=== PATIENT | female | born 2005 | race Caucasian/White ===

== ENCOUNTER 2023-09-14 10:19 | Emergency (ER) | payer BC, SELFPAY ==
[2023-09-14 10:38] VITALS: BP 125/79; PULSE 76; RESP 18; TEMP 37.7; O2SAT 97
--- NOTE | 2023-09-14 11:39 | ED_ITS ---
HPI - General Adult General Chief complaint: Shortness of Breath/Dyspnea Stated complaint: covid +, difficulty breathing Time Seen by Provider: 09/14/23 11:09 History of Present Illness HPI narrative: This 18-year-old female comes in with upper respiratory symptoms that began 2 days ago. She tested at home for COVID and this returned with a positive result. She comes in today stating that she feels like her chest is tight. She arrives with normal vital signs. She thinks that she might have had a fever but did not measure her temperature. Her temperature here today is 99.8? F. Oximetry on arrival is at 97% on room air with normal respiratory rate and pulse rate. Related Data Home Medications Medication Instructions Recorded Confirmed clonidine HCl 0.1 mg tablet 0.1 mg PO DAILY 07/22/23 07/22/23 dextroamphetamine-amphetamine 20 1 tab PO DAILY 07/22/23 07/22/23 mg tablet dextroamphetamine-amphetamine ER 1 cap PO QAM 07/22/23 07/22/23 20 mg 24hr capsule,extend release duloxetine 60 mg capsule,delayed 60 mg PO DAILY 07/22/23 07/22/23 release hydroxyzine HCl 10 mg tablet 10 mg PO TID PRN 07/22/23 07/22/23 valacyclovir 1 gram tablet 4,000 mg PO ONCE 07/22/23 07/22/23 Previous Rx's Medication Instructions Recorded albuterol sulfate 90 mcg/actuation 2 inh inhalation Q4-6H PRN #1 ea 09/14/23 breath activated powder inhaler Allergies Allergy/AdvReac Type Severity Reaction Status Date / Time No Known Drug Allergies Allergy Verified 07/22/23 10:31 Review of Systems Status of ROS: Reports: 10 or more systems reviewed and unremarkable except as noted in History and below Narrative: Constitutional: No fevers, no weight gain or loss. Eyes: No discharge. No vision changes. HENT: No congestion, no sore throat, no ear pain. Cardiovascular: No chest pain, no palpitations. Respiratory: No shortness of breath, no wheezes. Productive cough. Gastrointestinal: No abdominal pain, no vomiting, no diarrhea. Genitourinary: No dysuria, no hematuria. Musculoskeletal: Normal range of motion. Skin: No rashes, no pruritis. Neurological: No dizziness, weakness, sensory change, speech change. Endo/Heme/Allergies: No bruising or bleeding. No polydipsia. Pysch: no suicidality, no anxiety, no insomnia. All other systems reviewed and are negative. Exam Narrative: Exam Narrative: Constitutional: Well-developed, well-nourished, no acute distress. HEENT: Normocephalic, atraumatic. Neck: Normal range of motion. Nontender. Supple. Heart: Regular. No murmurs. Normal rate. Intact distal pulses. Lungs: Clear to auscultation. No wheezes, rhonchi, or rales. Abdomen: Normal bowel sounds. Nontender. No rebound tenderness. Genitalia: Deferred. Back: No midline tenderness. Normal range of motion. Extremities: Normal range of motion. No injury. Skin: Intact. No rash. Warm. No erythema or pallor. Neurologic: No altered sensation. No weakness. Alert and oriented. Psychiatric: No suicidality. No anxiety or depression. No insomnia. Nursing notes and vitals signs are reviewed. Const: Vital Signs, click to edit/add: Vital Signs - 24 hr 09/14/23 10:38 Temperature 99.8 F H Pulse Rate [Pulse Oximeter] 76 Respiratory Rate 18 Blood Pressure [Ri t Upper Arm] 125/79 Pulse Oximetry 97 Oxygen Delivery Me thod Room Air Course Vital Signs Vital signs: Initial Vital Signs Temperature 99.8 F H 09/14/23 10:38 Temperature Source Temporal Artery Scan 09/14/23 10:38 Pulse Rate 76 09/14/23 10:38 Respiratory Rate 18 09/14/23 10:38 Blood Pressure 125/79 09/14/23 10:38 Blood Pressure Mean 94 09/14/23 10:38 Blood Pressure Position Sitting 09/14/23 10:38 Pulse Oximetry 97 09/14/23 10:38 Oxygen Delivery Method Room Air 09/14/23 10:38 Vital Signs Temperature 99.8 F H 09/14/23 10:38 Pulse Rate 76 09/14/23 10:38 Respiratory Rate 18 09/14/23 10:38 Blood Pressure 125/79 09/14/23 10:38 Pulse Oximetry 97 09/14/23 10:38 Oxygen Delivery Method Room Air 09/14/23 10:38 Temperature 99.8 F H 09/14/23 10:38 Pulse Rate 76 09/14/23 10:38 Respiratory Rate 18 09/14/23 10:38 Blood Pressure 125/79 09/14/23 10:38 Pulse Oximetry 97 09/14/23 10:38 Oxygen Delivery Method Room Air 09/14/23 10:38 Medical Decision Making MDM Narrative Medical decision making narrative: This patient arrives with upper respiratory infection symptoms and tested positive at home for COVID. She arrives with normal vital signs but states that she feels some tightness when taking a breath. On exam her lung sounds are normal bilaterally. The patient did receive an oral dose of dexamethasone 10 mg. She stated that she has used an inhaler in the past at times like these but does not regularly use an inhaler. I did provide prescription for albuterol. Discharge Plan Discharge Clinical Impression: COVID-19 Patient Disposition: Home, Self-Care Prescriptions: New albuterol sulfate 90 mcg/actuation aerosol powdr breath activated 2 inh inhalation Q4-6H PRNQty: 1 0RF No Action duloxetine 60 mg capsule,delayed release(DR/EC) 60 mg PO DAILY dextroamphetamine-amphetamine 20 mg capsule,extended release 24hr 1 cap PO QAM dextroamphetamine-amphetamine 20 mg tablet 1 tab PO DAILY valacyclovir 1 gram tablet 4,000 mg PO ONCE clonidine HCl 0.1 mg tablet 0.1 mg PO DAILY hydroxyzine HCl 10 mg tablet 10 mg PO TID PRN Follow Up/Referrals: Irma Mcleod MD [Primary Care Provider] - Stand Alone Forms: [employer] Info Instructions
[2023-09-14] MEDS: dexAMETHasone 10 MG/ML inj PO (11:47)
[2023-09-14 11:53] VITALS: PULSE 66; O2SAT 96
== END 2023-09-14 12:20 | disposition home or self-care (01) ==
LOC: ED 11:55
PROVIDERS: Emergency Provider Emergency Medicine Emergency Medical Services; PCP Pediatrics
DX: U07.1 COVID-19 (principal)
CPT/HCPCS: 99283; 99284; J1100

== ENCOUNTER 2023-09-28 08:32 | Emergency (ER) | payer OTHER, SELFPAY ==
[2023-09-28 08:41] VITALS: BP 117/75; PULSE 72; RESP 18; TEMP 37.1; O2SAT 98; BMI 26.6
--- NOTE | 2023-09-28 09:02 | ED.HEATRA ---
HPI - Head Injury General Time Seen by Provider: 09:02 Date Seen: 09/28/23 Chief complaint: Head Injury/Pain Stated complaint: Concussion Time Seen by Provider: 09/28/23 08:53 Source: patient and RN notes reviewed Mode of arrival: ambulatory Limitations: no limitations History of Present Illness HPI Narrative: This 18-year-old female is ambulatory into the ED for concern of concussion. She hit her head at work 4 days ago, no loss of consciousness. Now she states it hurts to touch the area where she hit her head, has a light headache, does describe some blurry vision when looking at her telephone only. 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 She has had 2 prior concussions, was in the care of a specialist for 1 of them. Her symptoms have been a little different, she feels she hit different areas of her head with each of these. Light is really bothering her, feels nauseated with light. She will feel a little woozy with walking but is still able to walk. MD Complaint: head injury and head pain Related Data Home Medications Medication Instructions Recorded Confirmed clonidine HCl 0.1 mg tablet 0.1 mg PO DAILY 07/22/23 09/28/23 dextroamphetamine-amphetamine 20 1 tab PO DAILY 07/22/23 09/28/23 mg tablet dextroamphetamine-amphetamine ER 1 cap PO QAM 07/22/23 09/28/23 20 mg 24hr capsule,extend release hydroxyzine HCl 10 mg tablet 10 mg PO TID PRN 07/22/23 09/28/23 valacyclovir 1 gram tablet 4,000 mg PO ONCE 07/22/23 09/28/23 duloxetine 30 mg capsule,delayed 30 mg PO DAILY 09/28/23 09/28/23 release Previous Rx's Medication Instructions Recorded albuterol sulfate 90 mcg/actuation 2 inh inhalation Q4-6H PRN #1 ea 09/14/23 breath activated powder inhaler ondansetron HCl 4 mg tablet 4 mg PO Q8H PRN nausea and 09/28/23 vomiting #10 tabs Allergies Allergy/AdvReac Type Severity Reaction Status Date / Time No Known Drug Allergies Allergy Verified 07/22/23 10:31 Review of Systems Status of ROS: Reports: 6 or more systems reviewed and unremarkable except as noted in History and below PFSH PFSH Social History Do you use any of these nicotine containing products: Vaping Products How often do you have a drink containing alcohol: 2-4 times a month How often do you have six or more drinks on one occasion: Monthly AUDIT-C Alcohol total score: 4 Non-prescribed substance use: denies use Exam Const: Vital Signs, click to edit/add: Vital Signs - 24 hr 09/28/23 08:41 Temperature 98.8 F Pulse Rate [Right Pulse Oximeter] 72 Respiratory Rate 18 Blood Pressure [Ri ght Upper Arm] 117/75 Pulse Oximetry 98 Oxygen Delivery Me thod Room Air This 18-year-old female has lights off in exam room for, she does allow me to turn them on. She is very pleasant, alert, interactive, no apparent distress. Her stocking cap was removed, no visible area of trauma noted to the scalp, no palpable area of trauma noted. Pupils equal round reactive to light, extraocular muscles intact, no nystagmus, no noted double vision. Sclera clear. Symmetrical facial function, tongue protrudes midline, no oral traumatic changes noted. TMs and canals are normal, no traumatic change. Neck is supple, full range of motion. Lungs clear, CV regular rate rhythm no murmur. Neuro is grossly intact, gait normal ambulating in. Documenting provider has reviewed patient's vital signs: yes Course Course ED Course: Have reviewed [facility] head injury rules, risk of radiation outweighs benefit of any CT imaging. Her injury was 4 days ago. She does have symptoms at support concussion. We reviewed that I can make no projections as to how long she will have symptoms. I recommend rest, avoidance of screen time including television and phone if it increases her symptoms. We did discuss use the Tylenol and ibuprofen, will send a prescription for Zofran in if she is having nausea. She will need to follow-up early next week in clinic, note provided to be off work in the interim so she may rest. Vital Signs Vital signs: Initial Vital Signs Temperature 98.8 F 09/28/23 08:41 Temperature Source Temporal Artery Scan 09/28/23 08:41 Pulse Rate 72 09/28/23 08:41 Respiratory Rate 18 09/28/23 08:41 Blood Pressure 117/75 09/28/23 08:41 Blood Pressure Mean 89 09/28/23 08:41 Blood Pressure Position Sitting 09/28/23 08:41 Pulse Oximetry 98 09/28/23 08:41 Oxygen Delivery Method Room Air 09/28/23 08:41 Vital Signs Temperature 98.8 F 09/28/23 08:41 Pulse Rate 72 09/28/23 08:41 Respiratory Rate 18 09/28/23 08:41 Blood Pressure 117/75 09/28/23 08:41 Pulse Oximetry 98 09/28/23 08:41 Oxygen Delivery Method Room Air 09/28/23 08:41 Temperature 98.8 F 09/28/23 08:41 Pulse Rate 72 09/28/23 08:41 Respiratory Rate 18 09/28/23 08:41 Blood Pressure 117/75 09/28/23 08:41 Pulse Oximetry 98 09/28/23 08:41 Oxygen Delivery Method Room Air 09/28/23 08:41 Discharge Plan Discharge Clinical Impression: Concussion without loss of consciousness Patient Disposition: Home, Self-Care Condition: Stable Instructions: Concussion (ED) Additional Instructions: Need to rest, avoid exercise, screen time if they are increasing her symptoms. Recommend follow up in clinic with your primary care provider on Saturday or Saturday, consider referral to a concussion specialty clinic if you are having ongoing symptoms. May use Tylenol and ibuprofen per bottle directions as needed for any headache. Prescription for Zofran sent to be used if you are having nausea. Follow concussion patient Education handout given as well. Activity Level: Activity as Tolerated Discharge Diet: Regular Prescriptions: New ondansetron HCl 4 mg tablet 4 mg PO Q8H PRN (Reason: nausea and vomiting) Qty: 10 0RF No Action dextroamphetamine-amphetamine 20 mg capsule,extended release 24hr 1 cap PO QAM dextroamphetamine-amphetamine 20 mg tablet 1 tab PO DAILY valacyclovir 1 gram tablet 4,000 mg PO ONCE clonidine HCl 0.1 mg tablet 0.1 mg PO DAILY hydroxyzine HCl 10 mg tablet 10 mg PO TID PRN albuterol sulfate 90 mcg/actuation aerosol powdr breath activated 2 inh inhalation Q4-6H PRNQty: 1 0RF duloxetine 30 mg capsule,delayed release(DR/EC) 30 mg PO DAILY Follow Up/Referrals: Irma Mcleod MD [Primary Care Provider] - Stand Alone Forms: [employer] Info Instructions
== END 2023-09-28 09:34 | disposition home or self-care (01) ==
PROVIDERS: Emergency Provider Family Medicine; PCP Pediatrics
DX: S06.0X0A Concussion without loss of consciousness, initial encounter (principal); W22.8XXA Striking against or struck by other objects, initial encounter
CPT/HCPCS: 99282; 99283

== ENCOUNTER 2023-11-22 11:00 | Outpatient (RCR) | payer OTHER, SELFPAY | END 2024-01-03 14:56 | disposition home or self-care (01) | PROVIDERS: PCP Pediatrics; Visit Provider Pediatrics | DX: S06.0X0A Concussion without loss of consciousness, initial encounter (principal); S16.1XXA Strain of muscle, fascia and tendon at neck level, initial encounter; G44.86 Cervicogenic headache; Z51.89 Encounter for other specified aftercare | CPT/HCPCS: 97110; 97140; 97162 ==

== ENCOUNTER 2024-06-17 19:01 | Outpatient (CLI) | payer BC, SELFPAY ==
[2024-06-17 23:42] LABS: Chlamydia DNA Amplified* NOT DETECTED (No Detected); GC DNA Amplified* NOT DETECTED (No Detected)
== END 2024-06-17 19:02 | disposition home or self-care (01) ==
PROVIDERS: PCP Pediatrics; Visit Provider Nurse Practitioner
DX: N89.8 Other specified noninflammatory disorders of vagina (principal); R30.0 Dysuria
CPT/HCPCS: 87491; 87591

== ENCOUNTER 2024-07-21 00:08 | Emergency (ER) | payer BC, SELFPAY ==
[2024-07-21 00:17] VITALS: BP 125/113; PULSE 111; RESP 18; TEMP 36.4; O2SAT 95; BMI 31.8
[2024-07-21] MEDS: IPRAT-ALBUT 0.5-2.5 MG/3 ML NEB 1 NEB IH (00:44)
--- NOTE | 2024-07-21 00:59 | ED_ITS ---
HPI - General Adult General Chief complaint: Shortness of Breath/Dyspnea Stated complaint: trouble breathing/wheezing Time Seen by Provider: 07/21/24 00:11 Source: patient Mode of arrival: ambulatory History of Present Illness HPI narrative: 19-year-old female presents the emergency department with a 3 week history of cough and wheezing. Symptoms have not changed in any way, but are persistent. There is no severe shortness of breath, no productive cough. She has not been evaluated in urgent care or clinic for these symptoms. No measurable fever. No history of blood clots. Does not take any anticoagulants. Has not tried any in halers or other typical [id number] treatments. Reports a remote history of exercise-induced asthma but does not have access to an inhaler. Does have a primary care provider. No known sick exposures, no pertinent travel history. No cardiac symptoms. Reports congestion in the chest. Past medical history notable for depression, exercise-induced asthma. Long-term medications are Adderall, duloxetine, Zofran and Vistaril. She has Nexplanon for contraception. ROS notable for the respiratory and HEENT symptoms as above. Related Data Home Medications ?Medication ?Instructions ?Recorded ?Confirmed clonidine HCl 0.1 mg tablet 0.1 mg PO DAILY 07/22/23 07/06/24 dextroamphetamine-amphetamine 20 1 tab PO DAILY 07/22/23 07/06/24 mg tablet dextroamphetamine-amphetamine ER 1 cap PO QAM 07/22/23 07/06/24 20 mg 24hr capsule,extend release hydroxyzine HCl 10 mg tablet 10 mg PO TID PRN 07/22/23 07/06/24 valacyclovir 1 gram tablet 4,000 mg PO ONCE 07/22/23 07/06/24 duloxetine 30 mg capsule,delayed 30 mg PO DAILY 09/28/23 07/06/24 release Previous Rx's ?Medication ?Instructions ?Recorded albuterol sulfate 90 mcg/actuation 2 inh inhalation Q4-6H PRN #1 ea 09/14/23 breath activated powder inhaler ondansetron HCl 4 mg tablet 4 mg PO Q8H PRN nausea and 09/28/23 vomiting #10 tabs albuterol sulfate 90 mcg/actuation 1 inh inhalation Q4-6H PRN #1 ea 07/21/24 breath activated powder inhaler azithromycin 250 mg tablet See Rx Instructions PO .COMPLEX #6 07/21/24 tabs cefdinir 300 mg capsule 300 mg PO BID 7 days #14 caps 07/21/24 inhalational spacing device #1 ea 07/21/24 (BreatheRite Valved MDI Spacer) prednisone 20 mg tablet 20 mg PO DAILY #3 tabs 07/21/24 Allergies Allergy/AdvReac Type Severity Reaction Status Date / Time No Known Drug Allergies Allergy Verified 07/06/24 18:34 PFSH PFS Social History Do you use any of these nicotine containing products: Vaping Products How often do you have a drink containing alcohol: 2-4 times a month How often do you have six or more drinks on one occasion: Monthly AUDIT-C Alcohol total score: 4 Non-prescribed substance use: denies use Exam Const: Vital Signs, click to edit/add: Vital Signs - 24 hr 07/21/24 00:17 Temperature 97.6 F Pulse Rate [Pulse Oximeter] 111 H Respiratory Rate 18 Blood Pressure [Ri ght Upper Arm] 125/113 H Pulse Oximetry 95 Oxygen Delivery Me thod Room Air Documenting provider has reviewed patient's vital signs: yes Common normals: no apparent distress General appearance: comfortable HENMT: Common normals: normocephalic Head and scalp: normocephalic Face and sinus: normal facial exam Mouth: oral and palatal mucosa normal Throat: posterior oropharynx normal Eye: Common normals: conjunctivae normal General eye: normal appearance of both eyes Conjunctiva: conjunctiva(e) normal Neck & C-Spine: Common normals: full ROM and no lymphadenopathy Resp: Common normals: normal respiratory effort Other: Moderate expiratory wheeze and mild prolongation of expiration. Very faint by basilar bilateral crackles. No increased respiratory effort. Cardio: Common normals: regular rate, regular rhythm, S1 normal heart sound, S2 normal heart sound and no murmurs Rate: regular rate Rhythm: regular rhythm Heart sounds: S1 normal and S2 normal Extremity: Common normals: normal to inspection and no pedal edema Psych: Appearance: grossly normal Attitude: calm Insight: fair Judgement: fair Skin: Common normals: no rashes or lesions noted General skin exam: no rashes or lesions noted Course Course ED Course: 19-year-old female with 3 weeks of cough, no fever. Exam suspicious for atypical pneumonia. Age demographic does fit. No hypoxia or tachypnea. Counseled patient that additional testing such as blood work, chest x-ray, etc. is unlikely to climate change analyst. Recommended prednisone. Due to her psychiatric history, would recommend that she take the medication in the mornings. Dosing discussed. We have had quite a bit of local resistance for young people with pneumonias and treatment on doxycycline. Because of this, I do recommend cephalosporin plus azithromycin instead. She was understanding of this. Single dose of cefuroxime and azithromycin here in the ED. Seven days of Ceftin plus additional 5 days of azithromycin sent to pharmacy. Three days of prednisone. Will give DuoNeb x1 prior to ED departure and prescribed albuterol with spacer. Use discussed. Off of work for 48 hours, then may return without restrictions. Alarm symptoms route that would warrant ED presentation. If she is not improving at least 2[address] the time she is finished with antibiotics, repeat clinic evaluation. Counseled on typical nature of reactive airway disease to last several weeks even after antibiotic treatment. She verbalizes understanding and agreement, written instructions provided. Vital Signs Vital signs: Initial Vital Signs Temperature 97.6 F 07/21/24 00:17 Temperature Source Temporal Artery Scan 07/21/24 00:17 Pulse Rate 111 H 07/21/24 00:17 Respiratory Rate 18 07/21/24 00:17 Blood Pressure 125/113 H 07/21/24 00:17 Blood Pressure Mean 117 H 07/21/24 00:17 Blood Pressure Position Sitting 07/21/24 00:17 Pulse Oximetry 95 07/21/24 00:17 Oxygen Delivery Method Room Air 07/21/24 00:17 Vital Signs Temperature 97.6 F 07/21/24 00:17 Pulse Rate 111 H 07/21/24 00:17 Respiratory Rate 18 07/21/24 00:17 Blood Pressure 125/113 H 07/21/24 00:17 Pulse Oximetry 95 07/21/24 00:17 Oxygen Delivery Method Room Air 07/21/24 00:17 Temperature 97.6 F 07/21/24 00:17 Pulse Rate 111 H 07/21/24 00:17 Respiratory Rate 18 07/21/24 00:17 Blood Pressure 125/113 H 07/21/24 00:17 Pulse Oximetry 95 07/21/24 00:17 Oxygen Delivery Method Room Air 07/21/24 00:17 Medications Administered Medications: Discontinued Medications Generic Name Dose Route Start Last Admin Trade Name Laurie PRN Reason Stop Dose Admin Albuterol/Ipratropium 1 neb 07/21/24 00:41 07/21/24 00:44 Iprat-Albut 0.5-2.5 Mg/3 Ml Neb IH 07/21/24 00:42 1 neb ONCE ONE Administration Azithromycin 500 mg 07/21/24 00:41 07/21/24 01:03 Azithromycin 250 Mg Tablet PO 07/21/24 00:42 500 mg ONCE ONE Administration Cefuroxime Axetil 500 mg 07/21/24 00:42 07/21/24 01:03 Cefuroxime Axetil 500 Mg Tablet PO 07/21/24 00:43 500 mg ONCE ONE Administration Discharge Plan Discharge Clinical Impression: Atypical pneumonia, RAD (reactive airway disease) Patient Disposition: Home w/ Parent or Adult Condition: Stable Instructions: How to Use a Metered-Dose Inhaler (DC), Pneumonia (ED) Additional Instructions: As we discussed, your the low lung exam is clearly consistent with a walking pneumonia. You also had some wheezing consistently reactive airway disease. Based on the duration of your symptoms, I do recommend treatment with antibiotics. We do have some local resistance to doxycycline which is typically the first-line preferred agent for pneumonia and someone your age. Because of this, I do recommend a bit stronger treatment. We started you on a combination of a cephalosporin and macrolide antibiotic. He will continue taking cefdinir 300 mg twice daily for 1 week. Your next dose will be this afternoon, 3rd dose will be Saturday morning and 4th dose will be Saturday evening. It is okay to start adjusting this on to a more please able schedule you will continue taking azithromycin per the package instructions as well. Your next dose of this will be Saturday morning. The dose your given in the emergency department will count as your Saturday morning dose. I would also like for you to start some prednisone. Because of your move medications, I would recommend that you take this this afternoon, and then switch to morning dosing thereafter for just a few days that you will be on the medication. Taking it too late at night can worsen insomnia. Your likely to have persistent wheezing for several weeks following the course of this illness and it is not necessarily a sign of treatment failure. Your symptoms really should be about 2/3 better by the time you have completed your antibiotic. Keep the inhaler through the winter as you may have flare-ups of wheezing from cold air, other common viral infections or mild illnesses. If your symptoms have not improved at least somewhat within 5 days, I would recommend re-evaluation in an urgent care or primary care clinic. Please reserve the emergency department for severe symptoms. You may return to work on morning. Activity Level: Activity as Tolerated Discharge Diet: Regular Prescriptions: New prednisone 20 mg tablet 20 mg PO DAILY Qty: 3 0RF albuterol sulfate 90 mcg/actuation aerosol powdr breath activated 1 inh inhalation Q4-6H PRNQty: 1 0RF (DME) BreatheRite Valved MDI Spacer Spacer See Rx Instructions .Route Qty: 1 0RF Rx Instructions: As directed azithromycin 250 mg tablet See Rx Instructions .ROUTE .COMPLEX Qty: 6 0RF Rx Instructions: For 250 mg dose pack: take 500 mg today (day 1), then 250 mg for 4 days (days 2-5) cefdinir 300 mg capsule 300 mg PO BID 7 Days Qty: 14 0RF No Action dextroamphetamine-amphetamine 20 mg capsule,extended release 24hr 1 cap PO QAM dextroamphetamine-amphetamine 20 mg tablet 1 tab PO DAILY valacyclovir 1 gram tablet 4,000 mg PO ONCE clonidine HCl 0.1 mg tablet 0.1 mg PO DAILY hydroxyzine HCl 10 mg tablet 10 mg PO TID PRN albuterol sulfate 90 mcg/actuation aerosol powdr breath activated 2 inh inhalation Q4-6H PRNQty: 1 0RF duloxetine 30 mg capsule,delayed release(DR/EC) 30 mg PO DAILY ondansetron HCl 4 mg tablet 4 mg PO Q8H PRN (Reason: nausea and vomiting) Qty: 10 0RF Follow Up/Referrals: Irma Mcleod MD [Primary Care Provider] - Stand Alone Forms: [employer] Info Instructions
[2024-07-21] MEDS: cefuroxime axetiL 500 MG TABLET PO (01:03)
[2024-07-21] MEDS: AZITHROMYCIN 250 MG TABLET 500 MG PO (01:03)
[2024-07-21 01:16] LABS: PCR FLU A Negative PCR FLU A (Negative); PCR FLU B Negative PCR FLU B (Negative); PCR RSV Negative PCR RSV (Negative); SARS PCR* Negative SARS-CoV-2 (Negative)
== END 2024-07-21 01:07 | disposition home or self-care (01) ==
LOC: ED 00:52
PROVIDERS: Emergency Provider Family Medicine; PCP Pediatrics
DX: J45.909 Unspecified asthma, uncomplicated (principal); J18.9 Pneumonia, unspecified organism
CPT/HCPCS: 87631; 99283; 99284; A9270

== ENCOUNTER 2024-09-05 18:09 | Emergency (ER) | payer BC, SELFPAY ==
[2024-09-05 18:27] VITALS: BP 137/85; PULSE 92; RESP 16; TEMP 36.9; O2SAT 96; BMI 31.3
--- NOTE | 2024-09-05 18:51 | CRLHL7_ITS ---
For Patients: As a result of the Century Cures Act, medical imaging exams and procedure reports are released immediately into your electronic medical record. You may view this report before your referring provider. If you have questions, please contact your health care provider. INDICATION: Chest pain and shortness of breath. Similar symptoms 1 month ago with pneumonia. COMPARISON: 03/10/2021, 07/03/2016 TECHNIQUE: PA and lateral 2 view chest. FINDINGS: Lung volumes are good. Calcified granuloma right lower lobe. No change since prior. No focal or diffuse opacities. No pulmonary edema. No pleural effusion. No pneumothorax. No pneumomediastinum. Normal cardiomediastinal silhouette. Bones: Normal for age. IMPRESSION: Normal chest radiographs. Dictated by Kimberly Rice MD @ 09/05/2024 8:01:48 PM (Electronically Signed)
--- NOTE | 2024-09-05 18:54 | ED_ITS ---
HPI - General Adult General Date Seen: 09/05/24 Chief complaint: Shortness of Breath/Dyspnea Stated complaint: returned pnemonia symptoms Time Seen by Provider: 09/05/24 18:51 Source: patient Mode of arrival: ambulatory Limitations: no limitations History of Present Illness HPI narrative: Patient is a 19-year-old female presenting to the emergency department for concerned she is developing pneumonia. She states for the past couple days she has been having worsening cough, chills, headache. She also have intermittent chest pain and shortness of breath. Is not currently having chest pain or shortness of breath. When she has the chest pain she describes is a sharp sensation. Pain is not radiate. Is not having any muscle aches. Has not noticed any fevers or chills. Does have some mild lightheadedness but states that is normal for her. Not aware of any sick contacts. Was diagnosed with atypical pneumonia 1 month ago. She was prescribed cefdinir, prednisone, a Z- Elmer. She finished the Z-Elmer and the prednisone but lost the cefdinir after about 3 or 4 days so was not able to finish that course. Did have persisting cough since then but not again states the cough got worse over the past couple days. She came in to make sure she is not developing pneumonia again. No other concerns noted. Denies any history of blood clots. States her headache is relatively mild insert left sikhism forehead. This feels just like her previous headaches and she gets sick. Related Data Home Medications ?Medication ?Instructions ?Recorded ?Confirmed clonidine HCl 0.1 mg tablet 0.1 mg PO DAILY 07/22/23 09/05/24 dextroamphetamine-amphetamine 20 1 tab PO DAILY 07/22/23 07/06/24 mg tablet dextroamphetamine-amphetamine ER 1 cap PO QAM 07/22/23 07/06/24 20 mg 24hr capsule,extend release hydroxyzine HCl 10 mg tablet 10 mg PO TID PRN 07/22/23 07/06/24 valacyclovir 1 gram tablet 4,000 mg PO ONCE 07/22/23 07/06/24 duloxetine 30 mg capsule,delayed 30 mg PO DAILY 09/28/23 09/05/24 release Previous Rx's ?Medication ?Instructions ?Recorded ondansetron HCl 4 mg tablet 4 mg PO Q8H PRN nausea and 09/28/23 vomiting #10 tabs albuterol sulfate 90 mcg/actuation 1 inh inhalation Q4-6H PRN #1 07/21/24 breath activated powder inhaler albuterol sulfate 90 mcg/actuation 2 inh inhalation Q4-6H PRN #1 ea 07/21/24 breath activated powder inhaler albuterol sulfate 90 mcg/actuation 1 inh inhalation Q4-6H PRN #1 ea 07/21/24 breath activated powder inhaler,sensor azithromycin 250 mg tablet See Rx Instructions PO .COMPLEX #6 07/21/24 tabs azithromycin 250 mg tablet See Rx Instructions PO .COMPLEX #6 07/21/24 tabs cefdinir 300 mg capsule 300 mg PO BID #14 caps 07/21/24 cefdinir 300 mg capsule 300 mg PO BID 7 days #14 [facility] 07/21/24 inhalational spacing device #1 07/21/24 (BreatheRite Valved MDI Spacer) prednisone 20 mg tablet 20 mg PO DAILY #3 tabs 07/21/24 prednisone 20 mg tablet 20 mg PO DAILY #3 tabs 07/21/24 Allergies Allergy/AdvReac Type Severity Reaction Status Date / Time No Known Drug Allergies Allergy Verified 09/05/24 18:31 Review of Systems Status of ROS: Reports: 10 or more systems reviewed and unremarkable except as noted in History and below [facility] Social History Smoking Status: Never smoker Do you use any of these nicotine containing products: Vaping Products How often do you have a drink containing alcohol: 2-3 times a week AUDIT-C Alcohol total score: 3 Non-prescribed substance use: marijuana (any form) and crack/cocaine Exam Narrative: Exam Narrative: Const: Well-nourished, Well-developed, in mild distress Eyes: PERRL, no conjunctival injection, and symmetrical lids HENT: Atraumatic external nose and ears. Moist mucous membranes. Neck: Symmetric, trachea midline, No thyromegaly. CVS: RRR, No murmurs or gallops. Peripheral pulses 2+ and equal in all extremities RESP: Unlabored respiratory effort. Clear to auscultation bilaterally. GI: Nontender/Nondistended, No rebound or guarding. MSK:Extremities w/o deformity, Normal Active ROM Skin: Warm, Dry. No rashes or lesions. Neuro: Normal Muscle tone, No focal neurological deficits. Psych: Awake, Alert, & Oriented x3. Appropriate mood and affect. Const: Vital Signs, click to edit/add: Vital Signs - 24 hr 09/05/24 18:27 Temperature 98.5 F Pulse Rate [Left P ulse Oximeter] 92 Respiratory Rate 16 Blood Pressure [Ri ght Upper Arm] 137/85 Pulse Oximetry 96 Oxygen Delivery Me thod Room Air Course Vital Signs Vital signs: Initial Vital Signs Temperature 98.5 F 09/05/24 18:27 Temperature Source Oral 09/05/24 18:27 Pulse Rate 92 09/05/24 18:27 Respiratory Rate 16 09/05/24 18:27 Blood Pressure 137/85 09/05/24 18:27 Blood Pressure Mean 102 09/05/24 18:27 Blood Pressure Position Sitting 09/05/24 18:27 Pulse Oximetry 96 09/05/24 18:27 Oxygen Delivery Method Room Air 09/05/24 18:27 Vital Signs Temperature 98.5 F 09/05/24 18:27 Pulse Rate 92 09/05/24 18:27 Respiratory Rate 16 09/05/24 18:27 Blood Pressure 137/85 09/05/24 18:27 Pulse Oximetry 96 09/05/24 18:27 Oxygen Delivery Method Room Air 09/05/24 18:27 Temperature 98.5 F 09/05/24 18:27 Pulse Rate 92 09/05/24 18:27 Respiratory Rate 16 09/05/24 18:27 Blood Pressure 137/85 09/05/24 18:27 Pulse Oximetry 96 09/05/24 18:27 Oxygen Delivery Method Room Air 09/05/24 18:27 Medical Decision Making [facility] Narrative Medical decision making narrative: Patient is a 19-year-old female presenting for what sounds like a respiratory infection. PE seems unlikely as she describes the symptoms very similar to her previous pneumonia. She has no history of blood clots. Will do an EKG and troponin though to look for signs of ACS or myocarditis. Chest x-ray of the or dered for signs of pneumonia or pneumothorax. Growth order CBC and BMP. No wheezing heard on exam and breathing treatments are not necessary at this time. Lab work shows no concerning abnormalities. He is COVID flu and viral swabs are pending. EKG and troponin showed no concerning findings. Considering pain is intermittent and has been going on since yesterday I do not believe repeat troponin is necessary. She is otherwise doing well has had stable vital signs throughout time in the emergency department. She is agreeable for discharge. Will call her back with the results of the viral swabs if they are positive. Swab did return positive for COVID. She was informed by nursing staff Lab Data Labs: Lab Results 09/05/24 Range/Units 19:13 WBC 7.98 (4.50-11.00) K/uL RBC 4.88 (4.00-5.20) m/uL Hgb 14.6 (12.0-16.0) gm/dL Hct 42.9 (33.0-51.0) % MCV 88 (80-100) fL MCH 30 (26-34) pg MCHC 34 (32-36) gm/dL RDW Coeff of Mikala 11.7 (11.5-15.5) % Plt Count 237 (140-440) K/uL Neut % (Auto) 55.2 (42.0-72.0) % Lymph % (Auto) 25.8 (20-44) % [place] % (Auto) 13.9 H (0.0-11.0) % Eos % (Auto) 3.9 (0.0-7.0) % Baso % (Auto) 0.9 (0.0-3.0) % Neut # (Auto) 4.41 (1.7-7.0) K/uL Lymph # (Auto) 2.06 (0.90-2.90) K/uL [place] # (Auto) 1.10 H (0.00-0.90) K/UL Eos # (Auto) 0.31 (0.00-0.50) K/uL Baso # (Auto) 0.07 (0.00-0.30) K/uL Abs Immat Gran (auto) 0.02 (0.00-0.30) K/uL Imm/Tot Granulo (auto) 0.3 % Sodium 138 (135-149) mmol/L Potassium 3.5 L (3.6-5.1) mmol/L Chloride 110 (96-114) mmol/L Carbon Dioxide 19 L (20-32) mmol/L Anion Gap 9 (7-15) mEq/L BUN 8 (5-24) mg/dL Creatinine 0.7 (0.5-1.5) mg/dL Estimated Creat Clear 123.63 Estimated GFR 126 ml/min Glucose 92 (60-115) mg/dL Calcium 9.2 (8.4-10.6) mg/dL SARS-CoV-2 (PCR) POSITIVE SARS-CoV-2 A (Negative) Influenza Type A (PCR) Negative PCR FLU A (Negative) Influenza Type B (PCR) Negative PCR FLU B (Negative) RSV (PCR) Negative PCR RSV (Negative) POC Troponin I 0.00 L (0.01-0.04) ng/ml Imaging Data Chest x-ray: Attestation: I have reviewed the pertinent imaging results. Radiologist's impression: Normal chest radiographs. Dictated by Kimberly Rice MD @ 09/05/2024 8:01:48 PM ECG Data Attestation: I personally reviewed and interpreted this ECG as follows: Prior ECG tracings: not available for review Interpretation: Normal sinus rhythm with a rate of 78 beats per minute, normal intervals, normal axis, no ST or T-wave abnormalities. Discharge Plan Discharge Clinical Impression: Acute viral syndrome Patient Disposition: Home, Self-Care Condition: Stable Instructions: Viral Syndrome (ED) Additional Instructions: Symptoms are likely from some virus. Your COVID/flu/RSV swab is pending. Chest x-ray lab work shows no signs of pneumonia at this time. If symptoms persist to get follow-up with your primary care provider. If you develop new or worsening symptoms return for re-evaluation Prescriptions: No Action dextroamphetamine-amphetamine 20 mg capsule,extended release 24hr 1 cap PO QAM dextroamphetamine-amphetamine 20 mg tablet 1 tab PO DAILY valacyclovir 1 gram tablet 4,000 mg PO ONCE clonidine HCl 0.1 mg tablet 0.1 mg PO DAILY hydroxyzine HCl 10 mg tablet 10 mg PO TID PRN duloxetine 30 mg capsule,delayed release(DR/EC) 30 mg PO DAILY ondansetron HCl 4 mg tablet 4 mg PO Q8H PRN (Reason: nausea and vomiting) Qty: 10 0RF prednisone 20 mg tablet 20 mg PO DAILY Qty: 3 0RF albuterol sulfate 90 mcg/actuation aerosol powdr breath activated 1 inh inhalation Q4-6H PRNQty: 1 0RF (DME) BreatheRite Valved MDI Spacer Spacer See Rx Instructions .Route Qty: 1 0RF Rx Instructions: As directed azithromycin 250 mg tablet See Rx Instructions .ROUTE .COMPLEX Qty: 6 0RF Rx Instructions: For 250 mg dose pack: take 500 mg today (day 1), then 250 mg for 4 days (days 2-5) cefdinir 300 mg capsule 300 mg PO BID 7 Days Qty: 14 0RF azithromycin 250 mg tablet See Rx Instructions .ROUTE .COMPLEX Qty: 6 0RF Rx Instructions: For 250 mg dose pack: take 500 mg today (day 1), then 250 mg for 4 days (days 2-5) cefdinir 300 mg capsule 300 mg PO BID Qty: 14 0RF prednisone 20 mg tablet 20 mg PO DAILY Qty: 3 0RF albuterol sulfate 90 mcg/actuation aerosol powdr breath activated 2 inh inhalation Q4-6H PRNQty: 1 0RF albuterol sulfate 90 mcg/actuation aero powdr breath act w/sensor 1 inh inhalation Q4-6H PRNQty: 1 0RF Follow Up/Referrals: Irma Mcleod MD [Primary Care Provider] - Stand Alone [facility] Inst[facility]
[2024-09-05 19:35] LABS: Basophils Absolute Auto 0.07 K/uL (0.00-0.30); Basophils Percent Auto 0.9 % (0.0-3.0); Eosinophils Absolute Auto 0.31 K/uL (0.00-0.50); Eosinophils Percent Auto 3.9 % (0.0-7.0); Hematocrit 42.9 % (33.0-51.0); Hemoglobin* 14.6 gm/dL (12.0-16.0); Immature Granulocytes Abs Auto 0.02 K/uL (0.00-0.30); Immature Granulocytes Pct Auto 0.3 %; Lymphocytes Absolute Auto 2.06 K/uL (0.90-2.90); Lymphocytes Percent Auto 25.8 % (20-44); Mean Corpuscular HGB Conc 34 gm/dL (32-36); Mean Corpuscular Hemoglobin 30 pg (26-34); Mean Corpuscular Volume 88 fL (80-100); Monocytes Percent Auto 13.9 % (0.0-11.0); Neutrophils Absolute Auto 4.41 K/uL (1.7-7.0); Neutrophils Percent Auto 55.2 % (42.0-72.0); Platelet Count* 237 K/uL (140-440); RDW Coefficient of Variation % 11.7 % (11.5-15.5); Red Blood Count 4.88 m/uL (4.00-5.20); White Blood Count* 7.98 K/uL (4.50-11.00)
[2024-09-05 19:39] LABS: Slide Review Reflex No
[2024-09-05 19:51] LABS: Chloride* 110 mmol/L (96-114); Potassium* 3.5 mmol/L (3.6-5.1); Sodium* 138 mmol/L (135-149)
[2024-09-05 19:54] LABS: Anion Gap 9 mEq/L (7-15); Carbon Dioxide* 19 mmol/L (20-32); Creatinine* 0.7 mg/dL (0.5-1.5); Est. Creatinine Clearance* 123.63; Estimated Glomerular Filt Rate 126 ml/min
[2024-09-05 19:55] LABS: Blood Urea Nitrogen* 8 mg/dL (5-24); Calcium* 9.2 mg/dL (8.4-10.6); Glucose* 92 mg/dL (60-115)
[2024-09-05 20:14] LABS: PCR FLU A Negative PCR FLU A (Negative); PCR FLU B Negative PCR FLU B (Negative); PCR RSV Negative PCR RSV (Negative); SARS PCR* POSITIVE SARS-CoV-2 (Negative)
--- NOTE | 2024-09-05 20:19 | ED.NURSE ---
Pt was called and results for positive Covid+ were given to patient over the phone. Pt had no further for questions for this nurse.
== END 2024-09-05 20:13 | disposition home or self-care (01) ==
PROVIDERS: Emergency Provider Student in an Organized Health Care Education/Training Program; PCP Pediatrics
DX: U07.1 COVID-19 (principal)
CPT/HCPCS: 36415; 71046; 80048; 84484; 85025; 87631; 99284

== ENCOUNTER 2025-04-28 06:53 | Emergency (ER) | payer BC, SELFPAY ==
--- OUTSIDE RECORDS SUMMARY | 2025-04-28 06:56 | XMS_ITS | CCD ---
Author Name Interface, [id number] lity Address [address] [place] [address] Oncology Address [address] [place] [address] Allergies and Adverse Reactions Medication/Group Name Reaction Severity Date No known allergies Reason for Visit Medications Date Name Route Dose Frequency Instructions Start Date End Date Status 07/23/20 18 Norethindrone Yoandy-Eth Estradiol-Iron Oral 1 mg-20 mcg PO 1.0 TABLET(S ) daily 8 active Problems Diagnosis Status Date of Diagnosis Resolution Date Hypertrophy of breast (disorder) Active Social History Date Name Value Sex Female
--- OUTSIDE RECORDS SUMMARY | 2025-04-28 06:56 | XMS_ITS | Clinical Summary ---
Author Organization [facility] Address [address] [place] [id number] Care Team Providers Care Cargoman Name Role Phone Frederic Caballero MD Primary Care P rovider Suzanne Yanez DO Unavailable [phone] Allergies No known active allergies Medications hydrOXYzine HCL (ATARAX) 25 mg tabletIndications :МАРИЯ (generalized anxiety disorder) Take 1 Tablet (25 mg) by mouth 3 times daily if needed for Anxiety. 90 Tablet 1 4 Active ondansetron (ZOFRAN) 4 mg tabletIndications :Nausea Take 1 Tablet (4 mg) by mouth every 8 hours if needed for Nausea/Vomit ing. 30 Tablet 1 4 Active SUMAtriptan (IMITREX) 25 mg tabletIndications :Migraine with aura, not intractable, without status migrainosus Take 1 Tablet (25 mg) by mouth every 2 hours if needed for Migraine. Give at minimum 2hrs apart. Max Dose: 200mg per 24hrs. 10 Tablet 3 5 Active valACYclovir (VALTREX) 1 gram tabletIndications :Cold sore 2 grams (2 tabs) twice daily for 1 day at the first sign of a cold sore 20 Tablet 1 5 Active budesonide-formot Lety (SYMBICORT) 80-4.5 mcg/actuation (80-4.5 mcg each actuation) inhalerIndication s:Moderate persistent asthma without complication (HC) Inhale 2 puffs twice daily and 1-2 puffs every 4 hours as needed for asthma exacerbation s. Max 12 puffs per day. 1 Each 3 5 Active naltrexone 50 mg tabletIndications :Alcohol dependence, daily use (HC) Take 2 Tablets (100 mg) by mouth once daily. 180 Tablet 3 5 Active DULoxetine 60 mg Delayed-release capsuleIndication s:Anxiety disorder, unspecified type,Current moderate episode of major depressive disorder without prior episode (HC) Take 1 Capsule (60 mg) by mouth once daily. 90 Capsule 1 5 Active cloNIDine HCL 0.1 mg tabletIndications :Insomnia, unspecified type Take 1 Tablet (0.1 mg) by mouth at bedtime. 90 Tablet 1 5 Active dextroamphetamine -amphetamine (Adderall XR) 20 mg Extended-Release capsuleIndication s:ADHD (attention deficit hyperactivity disorder), inattentive type Take 1 Capsule (20 mg) by mouth once daily. 30 Capsule 5 Active dextroamphetamine -amphetamine 10 mg tabletIndications :ADHD (attention deficit hyperactivity disorder), inattentive type Take 1 Tablet (10 mg) by mouth one time if needed (If needed in the afternoon). 30 Tablet 5 Active nicotine 4 mg gumIndications:Ni cotine dependence due to vaping tobacco product Chew 1 Each (4 mg) every 2 hours if needed for Nicotine Craving. 200 Each 1 5 Active nicotine 21 mg/24 hr 21 mg/24 hr patchIndications: Nicotine dependence due to vaping tobacco product Apply 1 Patch on dry, clean, hairless skin once daily. 30 Patch 1 5 Active buPROPion (Wellbutrin XL) 150 mg Extended-Release tabletIndications :Moderate episode of recurrent major depressive disorder (HC),Nicotine dependence due to vaping tobacco product Take 1 Tablet (150 mg) by mouth once daily. 30 Tablet 5 Active buPROPion (Wellbutrin XL) 300 mg Extended-Release tabletIndications :Moderate episode of recurrent major depressive disorder (HC),Nicotine dependence due to vaping tobacco product Take 1 Tablet (300 mg) by mouth once daily. 30 Tablet 1 5 04/26/20 25 Discontin ued(*Medi cation adjustmen t) Hospital, Clinic, or Other Facility Administered Medication Ordered Dose Route Frequency Start Date End Date Status etonogestrel subdermal implant (NEXPLANON) 1 EachIndications:Encounter for removal and reinsertion of Nexplanon 1 Each Sdrm Q 3 YEARS 03/29/2022 Active Active Problems Problem Noted Date Diagnosed Date Generalized anxiety disorder with panic attacks 03/17/2025 Nicotine dependence due to vaping tobacco produc t 02/04/2025 Marijuana use 02/04/2025 History of other specified eating disorder 02/04 Alcohol use disorder 11/11/2024 Moderate episode of recurrent major depressive d isorder 11/11/2024 PTSD (post-traumatic stress disorder) 11/11/2024 Asthma, mild intermittent 10/28/2024 ADHD (attention deficit hype ractivity disorder), inattentive type 05/01/2021 Deliberate self-cutting 02/02/2019 Vitamin D deficiency 12/27/2018 Panic disorder without agoraphobia 12/25/2018 Migraine with aura, not intr actable, without status migrainosus 06/25/2017 Resolved Problems Problem Noted Date Diagnosed Date Resolved Date Anxiety disorder 02/04/2025 03/04/2025 Anxiety disorder with panic attacks 02/04/2025 03/04/2025 Intentional ibuprofen overdose 02/02/2019 05/01/2021 Complication of right ear piercing 12/01/2018 05/01/2021 Current moderate episode of major depressive disorder without prior episode 11/14/2018 Anxiety disorder 11/14/2018 01/13/2025 Exercise-induced bronchospasm 07/26/2015 10/28/2024 Adenoid hypertrophy 12/21/2014 03/22/20 15 Anxiety state, unspecified 10/13/2012 0 05/01/2021 Tonsillar and adenoid hypertrophy 04/22/2012 07/08/2012 Recurrent tonsillitis 04/22/20122011 Obesity, unspecified 03/23/2008 019 Encounters Date Type Department Care Team Description 04/23/2025 Refill [facility] [address] [place] [address] Frederic Caballero MD Refill Request (Bupropion) 03/17/2025 7:15 AM CDT Telemedicine [facility] [address] [place] [address] Suzanne Yanez DO Telehealth; Medication Management 03/17/2025 Travel 03/04/2025 9:00 AM CDT Office Visit [facility] [address] [place] [address] Bunny Bermudez PsyD, LP Individual Therapy 03/04/2025 Travel 02/17/2025 3:30 PM CDT Office Visit [facility] [address] [place] [address] Bunny Bermudez PsyD, LP Individual Therapy 02/17/2025 Travel 02/04/2025 8:45 AM CDT Telemedicine [facility] [address] [place] [id number] Suzanne Yanez DO Mental Health Intake; Telehealth (DC) 02/02/2025 Office Visit [facility] [address] [place] [address] Bunny Bermudez PsyD, LP Late Cancel Appointment 02/01/2025 Telephone [facility] [address] [place] [address] Bunny Bermudez PsyD, LP Late Cancel Appointment (APT 02/02/2025) 01/31/2025 Travel 01/26/2025 Telephone [facility] [address] [place] [address] Suzanne Yanez DO Appointment Reminder (Adult intake call ) from Last 3 Months Immunizations Immunization Administration Dates Next Due AMB Influenza, (Flumist) June e Intranasal,LAIV4 (Flu Clinic Only) 08/02/2010 COVID-19 VACCINE SPIKEVAX (M ODERNA 50MCG/0.5ML) 12YO+ PFS 10/16/2024 COVID-19 vaccine (Tipstar-Bio NTech 30mcg/0.3mL) 12YO+ MARGARET-SUCROSE PF, MDV 03/29/2022 COVID-19 vaccine (Tipstar-Bio NTech 30mcg/0.3mL) PF, MDV 08/08/2021,05/01/2021 DTaP 03/23/2008, 4,2003,07/09,2003 HIB-HepB (Comvax) 06/27/2004,2003,05/10/20 03 Hepatitis A (Peds) 03/12/2007,03/12/2006 Hepatitis B (Peds) 03/12/2006,2003 Human Papilloma Virus Vaccine 10/06/2014, 014,03/23/2014 INFLUENZA, IIV3 PF (AGE >= 6 MO) 07/29/2024 Inactivated Polio Vaccine 03/23/2008,,2003,05/10 Influenza, IIV3 (Age 6-35 mos) 06/14/2011 Influenza, IIV3 (Age >=3 years) 07/07/2013,07/17,07/10/2006 Influenza, IIV4 08/13/2023, 3,10/31/2021,05/24,07/15/2019,06/26/2018,06/25/2017 Influenza, Whole Virus 06/21/2015 MENINGOCOCCAL VACCINE 2 VIAL 2MO-55YO (MENVEO) 03/24/2019,03/23/2014 MMR 03/12/2006,03/13/2004 Pneumococcal conj 7-Valent (Prevnar 7) 1 ,2003,2003,07/09,2003 Td, Preservative Free (age >= 7 Years) 5 Tdap 03/23/2014 Varicella Vaccine 03/23/2008,03/13/2004 Family History Medical History Relation Name Comments Unknown Father Hypertension Maternal Grandfather Psychiatric illness Maternal Grandmother Bipolar Disorder Thyroid Disease Maternal Grandmother Hypo thyroidism Good Health Mother Diabetes Other maternalgreat g randma Heart Disease Other maternal great grnadma Hypertension Paternal Grandfather Unknown Paternal Grandfather Unknown Paternal Grandmother Anesthesia Problem No Family History Asthma No Family History Blood Disease No Family History Cancer-breast No Family History Cancer-colon No Family History Relation Name Status Comments Father Alive Maternal Grandfather Alive Maternal Grandmother Alive Mother Alive Other Paternal Grandfather Alive Paternal Grandmother Alive Social History Tobacco Use Types Packs/Day Years Used Date Smoking Tobacco: Never Smokeless Tobacco: Never Tobacco Cessation:Counseling Given: No Alcohol Use Standard Drinks/Week Comments Yes 0 (1 standard drink = 0.6 oz pur e alcohol) 1-2 times weekly PHQ-2 Answer Date Recorded PHQ-2 TOTAL SCORE 4 03/17/2025 Social Connections Answer Date Recorded Do you often feel lonely or isolated from those around you? 0 10/15/2024 Financial Resource Strain Answer Date R ecorded Difficulty of Paying Living Expenses 3 10/15/2024 Difficulty of Paying Living Expenses Not on file 10/15/2024 Food Insecurity Answer Date Recorded Do you worry your food will run out before you are able to buy more? 1 10/15/2024 Transportation Needs Answer Date Record ed Does lack of transportation keep you from medica l appointments? 1 10/15/2024 Does lack of transportation keep you from work, meetings or getting things that you need? 1 10/15/2024 Housing Stability Answer Date Recorded What is your housing situation today? 1 10/15/2024 Utilities Answer Date Recorded Do you have trouble paying f or utilities (for example, heat, electricity, water, phone)? 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 Gender Identity Not on file Sexual Orientation Not on file Occupation Industry Job Start Date Job End Date [employer] Not on file Not on file Not on file Obstetrics History Para Term AB IAB SAB Ectopic Multiple Livin g Live Births 0 0 0 0 0 0 0 0 0 0 0 Last Filed Vital Signs Vital Sign Reading Time Taken Comments Blood Pressure 129/71 12/28/2024 10:28 AM CDT Pulse 84 12/28/2024 10:28 AM CDT Temperature 37.1 C (98.7 F) 05/24/2023 11:41 AM CDT Respiratory Rate 16 09/19/2021 10:21 AM MILL RECORDER Oxygen Saturation 99% 12/28/2024 10:28 AM CDT Inhaled Oxygen Concentration - - Weight 100 kg (220 lb 8 oz) 12/28/2024 10:28 AM CDT Height 169.5 cm (5' 6.73) 2024 7:49 AM CD T Body Mass Index 34.81 2024 7:49 AM CDT Plan of Treatment Health Maintenance Due Date Last Done Comments Pneumococcal series for age 6-49 (1 of 2 - PCV) 2022 06/27/2004, 2003, 2003, Additional history exists Pap test for age 21-65 2024 BMI (ht and wt on same day) for age 18+ 2025 2024, 11/19/2023, 11/19/2023, Additional history exists Chlamydia for age 16-24 2025 03/09/20 24, 11/19/2023, 05/24/2023, Additional history exists Influenza Vaccine (#1) 2025 , 08/13/2023, 12/05/2022, Additional history exists Depression screening for age 12+ 03/17/2026 03/17/20 Tetanus booster 12/28/2034 12/28/2024, 03/23/2014 Hepatitis B series for 19+ Completed 03/12, 06/27/2004, 2003, Additional history exists HPV series for age 9-26 Completed 10/06/19 15, 04/22/2014, 03/23/2014 HIV for age 15-65 Completed 2024, , 08/17/2021, Additional history exists Hepatitis C screening for ag e 18-79 Completed 2024, 08/17/2021, 02/18/2020 COVID-19 vaccine series Completed 10/16/19 25, 12/05/2022, 03/29/2022, Additional history exists Procedures Procedure Name Priority Date/Time Associated Diagnosis Comments GC CHLAMYDIA TRACH PROBE Routine 2024 9:45 AM CDT Screening examination for STI ANTI HIV 1/2 Routine 2024 8:33 AM CDT Screening examination for STI ANTI HCV Routine 2024 8:33 AM CDT Screening examination for STI from Last 3 Months or Most Recently Relevant to Health Maintenance Results * GC CHLAMYDIA TRACH PROBE (2024 9:45 AM CDT) CHLAMYDIA PROBE Negative 10:35 PM CDT [facility] N GONORRHOEAE PROBE Negative 2024 10:35 PM CDT [facility] Other URINE SPECIMEN / Unknown Non-Blood / Unknown 2024 9:45 AM CDT 2024 10:06 AM CDT us Irma Mcleod MD MICROBIOLOGY Fin al Result Performing Organization Address [facility] de Phone Number [facility] [address] [place] [address], [place] * ANTI HCV (2024 8:33 AM CDT) HEPATITIS C ANTIBODY Non-Reacti ve Non-React [place] 2024 6:40 PM CDT [facility] Comment:Please note, per www .CDC.gov: If a patient is known to be at high risk of HCV infection, or is symptomatic, and the physician's suspicion of HCV infection is high, HCV RNA testing is often employed and is of diagnostic value, even after an initial negative anti-HCV test result. Blood BLOOD SPECIMEN / Unknown Venipuncture / Unknown 2024 8:33 AM CDT 2024 8:33 AM CDT us Irma Mcleod MD SEND OUTS Fin al Result Performing Organization Address [facility]/ZIP Co de Phone Number [facility] [address] [place] [id number], [place] * ANTI HIV 1/2 (2024 8:33 AM CDT) HIV-1/HIV-2 SCREEN Non-Reacti ve Non-Reacti ve 2024 6:39 PM CDT [facility] Comment:HIV-1 p24 and HIV-1/ HIV-2 Ab Not Detected. Blood BLOOD SPECIMEN / Unknown Venipuncture / Unknown 2024 8:33 AM CDT 2024 8:33 AM CDT us Irma Mcleod MD SEND OUTS Fin al Result [facility] [address] [place] [address], from Last 3 Months or Most Recently Relevant to Health Maintenance [facility] Advance Directives * Full Code (Latest Code Status on File) Date Activated Date Inactivated Comments 02/02/2019 11:24 AM 02/11/2019 2:30 PM Question Answer Comments Code Status Discussion: Not Discussed * Full Code Date Activated Date Inactivated Comments 12/24/2018 10:57 PM 01/01/2019 3:51 PM * Full Code Date Activated Date Inactivated Comments 04/24/2012 7:59 AM 04/24/2012 12:57 PM * Full Code Date Activated Date Inactivated Comments 04/23/2012 4:34 PM 04/24/2012 6:12 AM Care Teams Cargoman Relationship Specialty Start Date End Date Frederic Caballero MD [address] [place] [address] PCP - General Family Practice 10/16/24 Suzanne Yanez DO [address] [place] [address] Psychiatry 02/04/25
[2025-04-28 06:58] VITALS: BP 134/94; PULSE 93; RESP 18; TEMP 36.7; O2SAT 97; BMI 32.9
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
[2025-04-28] MEDS: AZITHROMYCIN 250 MG TABLET 500 MG PO (07:20)
[2025-04-28] MEDS: IPRAT-ALBUT 0.5-2.5 MG/3 ML NEB 1 NEB IH (07:23)
--- OUTSIDE RECORDS SUMMARY | 2025-04-28 07:33 | XMS_ITS | CCD ---
Author Name Interface, [id number] lity Address [address] [place] [address] Oncology Address [address] [place] [address] Allergies and Adverse Reactions Reason for Visit Medications Problems Social History
--- OUTSIDE RECORDS SUMMARY | 2025-04-28 07:33 | XMS_ITS | CCD ---
Author Name Interface, [id number] lity Address [address] [place] [address] Oncology Address [address] [place] [address] Allergies and Adverse Reactions Reason for Visit Medications Problems Social History
[2025-04-28 08:08] VITALS: BP 117/80; PULSE 68; RESP 20
== END 2025-04-28 08:09 | disposition home or self-care (01) ==
LOC: ED 07:32
PROVIDERS: Emergency Provider Family Medicine; PCP Pediatrics
DX: J45.901 Unspecified asthma with (acute) exacerbation (principal)
CPT/HCPCS: 99283; 99284; A9270; J7512

== ENCOUNTER 2025-06-08 22:05 | Emergency (ER) | payer BC, SELFPAY ==
[2025-06-08 22:14] VITALS: BP 133/77; PULSE 98; RESP 20; TEMP 36.8; O2SAT 99; BMI 34.7
[2025-06-08 22:41] LABS: Strep A DNA Probe* NOT DETECTED (Not Detectd)
--- NOTE | 2025-06-08 22:50 | ED.GENADULT ---
HPI - General Adult General Time Seen by Provider: 22:51 Date Seen: 06/08/25 Chief complaint: Cough Stated complaint: congestion, cough Time Seen by Provider: 06/08/25 22:50 Source: patient Mode of arrival: ambulatory History of Present Illness HPI narrative: Patricia is a 20-year-old female with no significant past medical history who presents the emergency department for evaluation of cough. Patient reports that she started feeling unwell on Saturday. Patient reports on Saturday she had some diarrhea as well as some mucus and nasal congestion. Patient reports that on Saturday she woke up feeling extremely fatigued as well as having a cough. Patient reports today she developed sore throat. Patient reports the friend was sick with COVID last week. Patient reports generally feeling unwell and would like to feel better. Patient complains of cough, nasal congestion, sore throat for the past 2 days. Denies any fever, chills, chest pain, shortness of breath, abdominal pain, nausea, vomiting. No other complaints. No medications prior to arrival. Related Data Home Medications ?Medication ?Instructions ?Recorded ?Confirmed clonidine HCl 0.1 mg tablet 0.1 mg PO DAILY 07/22/23 06/08/25 dextroamphetamine-amphetamine ER 1 cap PO QAM 07/22/23 06/08/25 20 mg 24hr capsule,extend release hydroxyzine HCl 10 mg tablet 10 mg PO TID PRN 07/22/23 06/08/25 budesonide-formoterol HFA 80 2 inh inhalation DIRECTED 06/08/25 06/08/25 mcg-4.5 mcg/actuation aerosol inhaler (Symbicort) bupropion HCl 300 mg 24 hr tablet, 300 mg PO DAILY 06/08/25 06/08/25 extended release duloxetine 60 mg capsule,delayed 60 mg PO DAILY 06/08/25 06/08/25 release naltrexone 50 mg tablet 50 mg PO BID 06/08/25 06/08/25 propranolol 10 mg tablet 10 mg PO DIRECTED 06/08/25 06/08/25 Previous Rx's ?Medication ?Instructions ?Recorded inhalational spacing device #1 ea 07/21/24 (BreatheRite Valved MDI Spacer) albuterol sulfate 90 mcg/actuation 2 inh inhalation Q4-6H PRN #1 ea 04/28/25 breath activated powder inhaler inhalational spacing device #1 ea 04/28/25 (BreatheRite MDI Spacer) Allergies Allergy/AdvReac Type Severity Reaction Status Date / Time bupropion Allergy Unknown Verified 06/08/25 22:15 Review of Systems Narrative: Past medical history, past surgical history, medications, allergies, family history, and social history were reviewed with the patient. No additional pertinent items. A medically appropriate review of systems was performed with pertinent positives and negatives noted in HPI, all other systems negative. [facility] Social History Smoking Status: Never smoker Do you use any of these nicotine containing products: Vaping Products Second hand tobacco smoke exposure: No How often do you have a drink containing alcohol: 2-3 times a week AUDIT-C Alcohol total score: 3 Non-prescribed substance use: marijuana (any form) and crack/cocaine Exam Narrative: Exam Narrative: General: Afebrile, no acute distress HEENT: Normocephalic, atraumatic, conjunctiva normal. Posterior pharynx with mild erythema, no swelling, no exudates MMM Neck: non-tender, supple Cardio: regular rate. regular rhythm Resp: Normal work of breathing, no respiratory distress, lungs clear bilaterally, no wheezing, rhonchi, rales Chest/Back: no visual signs of trauma, no midline tenderness, no CVA tenderness Abdomen: soft, non distension, no tenderness, no peritoneal signs Neuro: alert and fully oriented. CN II-XII grossly intact. Grossly normal strength and sensation in all extremities. MSK: no deformities. Normal range of motion Integumentary/Skin: no rash visualized, normal color Psych: normal affect, normal behavior Const: Vital Signs, click to edit/add: Vital Signs - 24 hr 06/08/25 22:14 06/08/25 23:17 Temperature 98.2 F 98.2 F Pulse Rate [Right Pulse Oximeter] 98 Respiratory Rate 20 Blood Pressure [Ri ght Upper Arm] 133/77 Pulse Oximetry 99 Oxygen Delivery Me thod Room Air Course Vital Signs Vital signs: Initial Vital Signs Temperature 98.2 F 06/08/25 22:14 Temperature Source Temporal Artery Scan 06/08/25 22:14 Pulse Rate 98 06/08/25 22:14 Respiratory Rate 20 06/08/25 22:14 Respiratory Effort Normal, Spontaneous, Non-Labored 06/08/25 22:14 Respiratory Depth Normal 06/08/25 22:14 Respiratory Pattern Normal 06/08/25 22:14 Blood Pressure 133/77 06/08/25 22:14 Blood Pressure Mean 95 06/08/25 22:14 Blood Pressure Position Sitting 06/08/25 22:14 Pulse Oximetry 99 06/08/25 22:14 Oxygen Delivery Method Room Air 06/08/25 22:14 Vital Signs Temperature 98.2 F 06/08/25 22:14 Pulse Rate 98 06/08/25 22:14 Respiratory Rate 20 06/08/25 22:14 Blood Pressure 133/77 06/08/25 22:14 Pulse Oximetry 99 06/08/25 22:14 Oxygen Delivery Method Room Air 06/08/25 22:14 Temperature 98.2 F 06/08/25 23:17 Pulse Rate 98 06/08/25 22:14 Respiratory Rate 20 06/08/25 22:14 Blood Pressure 133/77 06/08/25 22:14 Pulse Oximetry 99 06/08/25 22:14 Oxygen Delivery Method Room Air 06/08/25 22:14 Medications Administered Medications: Discontinued Medications Generic Name Dose Route Start Last Admin Trade Name Freq PRN Reason Stop Dose Admin Acetaminophen 1,000 mg 06/08/25 23:00 06/08/25 23:17 Acetaminophen 500 Mg Tablet PO 06/08/25 23:01 1,000 mg ONCE ONE Administration Pseudoephedrine HCl 30 mg 06/08/25 23:00 06/08/25 23:17 Pseudoephedrine Hcl 30 Mg Tablet PO 06/08/25 23:01 30 mg ONCE ONE Administration Medical Decision Making [facility] Narrative Medical decision making narrative: Patricia is a 20-year-old female with no significant past medical history who presents the emergency department for evaluation of cough. Upon arrival patient is nontoxic appearing, afebrile, no distress. Patient hemodynamically stable vital signs within normal limits. Patient with no tachycardia, no tachypnea, no respiratory distress, no hypoxia. Differential diagnosis includes but is not limited to viral illness versus COVID/influenza/RSV versus pneumonia versus bronchitis versus upper respiratory infection among others. Rapid strep negative. Viral testing negative for COVID/influenza/RSV. Patient was treated with Tylenol, Sudafed in the emergency department. I discussed results with patient, suspect likely viral illness. Overall patient nontoxic appearing, afebrile, lungs are clear to auscultation bilaterally, no hypoxia. Low suspicious pneumonia. Consider chest x-ray however after shared decision making, discussed with patient and will hold off on chest x-ray at this time. At this time recommend discharge home with continued supportive care, close outpatient follow-up and strict return precautions discussed. Patient understands and agrees with the plan. Lab Data Labs: Lab Results 06/08/25 Range/Units 22:12 SARS-CoV-2 (PCR) Negative SARS-CoV-2 (Negative) Influenza Type A (PCR) Negative PCR FLU A (Negative) Influenza Type B (PCR) Negative PCR FLU B (Negative) RSV (PCR) Negative PCR RSV (Negative) Group A Strep DNA NOT DETECTED (Not Detectd) Discharge Plan Discharge Clinical Impression: Cough, Upper respiratory infection Patient Disposition: Home, Self-Care Condition: Improved Instructions: Upper Respiratory Infection (ED) Additional Instructions: Please follow-up with your primary care provider in the next 3-5 days for further evaluation and follow-up. Please call to schedule appointment. Please rest, drink plenty of fluids. Please alternate taking Tylenol 1000 mg and ibuprofen 600 mg every 6 hours as needed for fever, body aches. You may take [id number] cough/cold medication and the decongestant (ex: Sudafed) to as needed to help with your symptoms. Please return to the emergency department if you develop persistent high fever, difficulty breathing, worsening symptoms. It was a pleasure taking care of you today. We hope you have a great week. Prescriptions: No Action dextroamphetamine-amphetamine 20 mg capsule,extended release 24hr 1 cap PO QAM clonidine HCl 0.1 mg tablet 0.1 mg PO DAILY hydroxyzine HCl 10 mg tablet 10 mg PO TID PRN propranolol 10 mg tablet 10 mg PO DIRECTED naltrexone 50 mg tablet 50 mg PO BID bupropion HCl 300 mg tablet extended release 24 hr 300 mg PO DAILY duloxetine 60 mg capsule,delayed release(DR/EC) 60 mg PO DAILY budesonide-formoterol [Symbicort] 80-4.5 mcg/actuation HFA aerosol inhaler 2 inh inhalation DIRECTED (DME) BreatheRite Valved MDI Spacer Spacer See Rx Instructions .Route Qty: 1 0RF Rx Instructions: As directed albuterol sulfate 90 mcg/actuation aerosol powdr breath activated 2 inh inhalation Q4-6H PRNQty: 1 4RF (DME) BreatheRite MDI Spacer Spacer See Rx Instructions .Route Qty: 1 0RF Rx Instructions: As directed Follow Up/Referrals: Irma Mcleod MD [Referring, Pediatrics] Stand Alone Forms: [facility] Info Instructions
[2025-06-08 22:54] LABS: PCR FLU A Negative PCR FLU A (Negative); PCR FLU B Negative PCR FLU B (Negative); PCR RSV Negative PCR RSV (Negative); SARS PCR* Negative SARS-CoV-2 (Negative)
--- OUTSIDE RECORDS SUMMARY | 2025-06-08 23:07 | XMS_ITS | Clinical Summary ---
Author Organization [email or web address] [facility] Address [address] [place] [address] Care Team Providers Care Oil Lease Broker Name Role Phone Fredeirc Caballero MD Primary Care P rovider Suzanne Yanez DO Unavailable [phone] Allergies Active Allergy Reactions Criticality Noted Date Comments Bupropion Hives 04/28/2025 Medications ondansetron (ZOFRAN) 4 mg tabletIndication s:Nausea Take 1 Tablet (4 mg) by mouth every 8 hours if needed for Nausea/Vomiting. 30 Tablet 1 03/09/20 24 Active SUMAtriptan (IMITREX) 25 mg tabletIndication s:Migraine with aura, not intractable, without status migrainosus Take 1 Tablet (25 mg) by mouth every 2 hours if needed for Migraine. Give at minimum 2hrs apart. Max Dose: 200mg per 24hrs. 10 Tablet 3 10/16/19 25 Active valACYclovir (VALTREX) 1 gram tabletIndication s:Cold sore 2 grams (2 tabs) twice daily for 1 day at the first sign of a cold sore 20 Tablet 1 10/16/19 25 Active budesonide-formo teroL (SYMBICORT) 80-4.5 mcg/actuation (80-4.5 mcg each actuation) inhalerIndicatio ns:Moderate persistent asthma without complication (HC) Inhale 2 puffs twice daily and 1-2 puffs every 4 hours as needed for asthma exacerbations. Max 12 puffs per day. 1 Each 3 10/28/19 25 Active naltrexone 50 mg tabletIndication s:Alcohol dependence, daily use (HC) Take 2 Tablets (100 mg) by mouth once daily. 180 Tablet 3 12/29/19 25 Active dextroamphetamin e-amphetamine 10 mg tabletIndication s:ADHD (attention deficit hyperactivity disorder), inattentive type Take 1 Tablet (10 mg) by mouth one time if needed (If needed in the afternoon). 30 Tablet 01/15/20 25 Active nicotine 4 mg gumIndications:N icotine dependence due to vaping tobacco product Chew 1 Each (4 mg) every 2 hours if needed for Nicotine Craving. 200 Each 1 02/05/20 25 Active nicotine 21 mg/24 hr 21 mg/24 hr patchIndications :Nicotine dependence due to vaping tobacco product Apply 1 Patch on dry, clean, hairless skin once daily. 30 Patch 1 02/05/20 25 Active buPROPion (Wellbutrin XL) 150 mg Extended-Release tabletIndication s:Moderate episode of recurrent major depressive disorder (HC),Nicotine dependence due to vaping tobacco product Take 1 Tablet (150 mg) by mouth once daily. 30 Tablet 04/26/20 25 Active DULoxetine (CYMBALTA) 60 mg Delayed-release capsuleIndicatio ns:Anxiety disorder, unspecified type,Current moderate episode of major depressive disorder without prior episode (HC) Take 1 Capsule (60 mg) by mouth once daily. 90 Capsule 1 05/05/20 25 Active dextroamphetamin e-amphetamine (Adderall XR) 20 mg Extended-Release capsuleIndicatio ns:ADHD (attention deficit hyperactivity disorder), inattentive type Take 1 Capsule (20 mg) by mouth once daily. 30 Capsule 05/05/20 25 Active cloNIDine HCL (CATAPRES) 0.1 mg tabletIndication s:Insomnia, unspecified type Take 1 Tablet (0.1 mg) by mouth at bedtime. 90 Tablet 1 05/05/20 25 Active Wellbutrin XL 300 mg Extended-Release tabletIndication s:Moderate episode of recurrent major depressive disorder (HC) Take 1 Tablet (300 mg) by mouth once daily. The patient is allergic to [employer]in manufacture- please dispense medication from any other manufacture 30 Tablet 1 05/05/20 25 Active propranoloL 10 mg tabletIndication s:МАРИЯ (generalized anxiety disorder) Take 1 Tablet (10 mg) by mouth 2 times daily if needed (for anxiety). 45 Tablet 1 05/21/20 25 Active hydrOXYzine HCL (ATARAX) 25 mg tabletIndication s:МАРИЯ (generalized anxiety disorder) Take 1 Tablet (25 mg) by mouth 3 times daily if needed for Anxiety. 90 Tablet 1 03/09/20 24 025 Discontinu ed(*Med complete/R egimen complete/L evel of care change) metroNIDAZOLE 0.75% vaginal (METROGEL) 0.75 % (37.5mg/5 gram) vaginal gelIndications:B V (bacterial vaginosis) Insert 1 Applicatorful into the vagina at bedtime for 5 days. 70 g 05/23/20 25 025 Hospital, Clinic, or Other Facility Administered Medication Ordered Dose Route Frequency Start Date End Date Status etonogestrel subdermal implant (NEXPLANON) 1 EachIndications:Encounter for removal and reinsertion of Nexplanon 1 Each Sdrm Q 3 YEARS 03/29/2022 Active Active Problems Problem Noted Date Diagnosed Date BMI 34.0-34.9,adult 05/21/2025 Generalized anxiety disorder with panic attacks 03/17/2025 [...] Encounters Date Type Department Care Team Description 05/21/2025 3:55 PM CDT Office Visit [facility] [address] [place] [address] Frederic Caballero MD Medication Management; Concerns (discuss PCOS) 05/21/2025 Travel 05/21/2025 Refill [facility] [address] [place] [address] Irma Mcleod MD Refill Request (Hydroxyzine Hcl) 05/18/2025 8:00 AM CDT Office Visit [facility] [address] [place] [address] Bunny Bermudez PsyD, LP Individual Therapy 05/18/2025 Travel 05/05/2025 7:45 AM CDT Telemedicine [facility] [address] [place] [address] Suzanne Yanez DO Medication Management; Telehealth ([place]) 05/05/2025 Travel 04/23/2025 Refill [facility] [address] [place] [address] Frederic Caballero MD Refill Request (Bupropion) 03/17/2025 7:15 AM CDT Telemedicine [facility] [address] [place] [address] Suzanne Yanez DO Telehealth; Medication Management 03/17/2025 Travel from Last 3 Months Immunizations Immunization Administration Dates Next Due AMB Influenza, (Flumist) June e Intranasal,LAIV4 (Flu Clinic Only) 08/02/2010 COVID-19 VACCINE SPIKEVAX (M ODERNA 50MCG/0.5ML) 12YO+ PFS 10/16/2024 COVID-19 vaccine (Pfizer-Bio NTech 30mcg/0.3mL) 12YO+ MARGARET-SUCROSE PF, MDV 03/29/2022 COVID-19 vaccine (Pfizer-Bio NTech 30mcg/0.3mL) PF, MDV 08/08/2021,05/01/2021 DTaP 03/23/2008, [...] Answer Date Recorded PHQ-2 TOTAL SCORE 4 05/18/2025 Social Connections Answer Date Recorded Do you [...] on file Legal Sex Female 7:18 AM NEON PUMPER Gender Identity Not on file Sexual Orientation [...] Sign Reading Time Taken Comments Blood Pressure 125/88 05/21/2025 4:07 PM CDT Pulse 95 05/21/2025 4:07 PM CDT Temperature 37.1 C (98.7 F) 05/24/2023 11:41 AM CDT Respiratory Rate 16 09/19/2021 10:21 AM NEON PUMPER Oxygen Saturation 97% 05/21/2025 4:07 PM CDT Inhaled Oxygen Concentration - - Weight 97.7 kg (215 lb 6.4 oz) 05/21/2025 4:07 P M CDT Height 169.5 cm (5' 6.73) 05/21/2025 4:07 PM CD T Body Mass Index 34.01 05/21/2025 4:07 PM CDT Plan of Treatment Upcoming Encounters Date Type Department Care Team (Late st Contact Info) Description 06/09/2025 8:00 AM CDT Office Visit [facility] [address] [place] [phone] Bunny Bermudez PsyD, [address] [place] [address] 06/15/2025 7:45 AM CDT Telemedicine [facility] [address] [facility] [address] [facility] [address] [place] [phone] Suzanne Yanez, DO [address] [facility] [place] [address] Health Maintenance Due Date Last Done Comments Pneumococcal series for age 6-49 (1 of 2 - PCV) 2022 06/27/2004, 2003, 2003, Additional history exists Pap test for age 21-65 2024 Influenza Vaccine (#1) 2025 , 08/13/2023, 12/05/2022, Additional history exists BMI (ht and wt on same day) for age 18+ 05/21/2026 05/21/2025, 2024, 11/19/2023, Additional history exists Chlamydia for age 16-24 05/21/2026 05/21/20 25, 2024, 11/19/2023, Additional history exists Depression screening for age 12+ 05/21/2026 05/21/2025, 05/18/2025, 05/05/2025 Tetanus booster 12/28/2034 12/28/2024, 03/23/2014 RSV vaccine for adults or (1 - 1-dose 75+ series) 2078 Hepatitis B series for 19+ Completed 03/12, 06/27/2004, 2003, Additional history exists HPV series for age 9-45 Completed 10/06/19 15, 04/22/2014, 03/23/2014 Hepatitis C screening for ag e 18-79 Completed 2024, 08/17/2021, 02/18/2020 COVID-19 vaccine series Completed 10/16/19, 12/05/2022, 03/29/2022, Additional history exists HIV for age 15-65 Completed 05/21/2025, , 05/24/2023, Additional history exists Procedures Procedure Name Priority Date/Time Associated Diagnosis Comments TRICHOMONAS, THOMAS, AND BACTERIAL VAGINOSIS BY SABINA Routine 05/21/2025 5:24 PM CDT Vaginal discharge COMP METABOLIC PANEL Routine 05/21/2025 5:10 PM CDT Alcohol use disorder GC CHLAMYDIA TRACH PROBE Routine 05/21/2025 5:10 PM CDT Possible exposure to STD TREPONEMA PALLIDUM Routine 05/21/2025 5: 10 PM CDT Possible exposure to STD ANTI HIV 1/2 Routine 05/21/2025 5:10 PM CDT Possible exposure to STD HEMOGLOBIN A1C Routine 05/21/2025 5:10 PM CDT Diabetes mellitus screening ANTI HCV Routine 2024 8:33 AM CDT Screening examination for STI from Last 3 Months or Most Recently Relevant to Health Maintenance Results * (ABNORMAL) TRICHOMONAS, THOMAS, AND BACTERIAL VAGINOSIS BY SABINA (05/21/2025 5:24 PM CDT) THOMAS SPECIES Negative Negative 4:04 PM CDT [facility] THOMAS GLABRATA Negative Negative 05/22/2025 4:04 PM CDT [facility] TRICHOMONAS VVA Negative Negative 4:04 PM CDT [facility] BACTERIAL VAGINOSIS Positive(A) Negative 05/22/2025 4:04 PM CDT [facility] Other VAGINAL SWAB / Unknown Non-Blood / Unknown 05/21/2025 5:24 PM CDT 05/21/2025 5:24 PM CDT Frederic Caballero MD MICROBIOLOGY Final Result [facility] [address] [place] [address], * HEMOGLOBIN A1C (05/21/2025 5:10 PM CDT) HEMOGLOBIN A1C 5.5 <5.7 % 05/22/2025 4:39 AM CDT [facility] Comment: For the purpose of screening for the presence of diabetes: <5.7% Consistent with the absence of diabetes 5.7-6.4% Consistent with increased risk for diabetes (prediabetes) > or =6.5% Consistent with diabetes This assay result is consistent with a decreased risk of diabetes. Currently, no consensus exists regarding use of hemoglobin A1c for diagnosis of diabetes in children. According to [place] Diabetes Association (ADA) guidelines, hemoglobin A1c <7.0% represents optimal control in non- diabetic patients. Different metrics may apply to specific patient populations. Standards of Medical Care in Diabetes(ADA). Blood BLOOD SPECIMEN / Unknown [facility] / Unknown 05/21/2025 5:10 PM CDT 05/21/2025 5:10 PM CDT Frederic Caballero MD CHEMISTRY Final Result [facility] [address] [place] [address], * TREPONEMA PALLIDUM (05/21/2025 5:10 PM CDT) TREPONEMA PALLIDUM Non-Reacti ve Non-Reacti ve 05/21/2025 10:42 PM CDT [facility] Blood BLOOD SPECIMEN / Unknown [facility] / Unknown 05/21/2025 5:10 PM CDT 05/21/2025 5:10 PM CDT Frederic Caballero MD SEND OUTS Final Result [facility] [address] [place] [address], [place] * GC & CHLAMYDIA DNA PCR [[id number]] (05/21/2025 5:10 PM CDT) CHLAMYDIA PROBE Negative 10:48 AM CDT [facility] N GONORRHOEAE PROBE Negative 05/22/2025 10:48 AM CDT [facility] Other URINE SPECIMEN / Unknown Non-Blood / Unknown 05/21/2025 5:10 PM CDT 05/21/2025 5:10 PM CDT Frederic Caballero MD MICROBIOLOGY Final Result [facility] [address] [place] [address], [place] * ANTI HIV 1/2 (05/21/2025 5:10 PM CDT) HIV FINAL INTERPRETATOIN SEE NOTE 05/22/2025 6:08 AM CDT [facility] Comment: HIV Negative HIV-1 antigen and HIV-1/HIV-2 antibodies were not detected. There is no laboratory evidence of HIV infection. HIV AG/AB, 4TH GEN NON-REACT CARITO NON-REACT CARITO 05/22/2025 6:08 AM CDT [facility] Blood BLOOD SPECIMEN / Unknown [facility] / Unknown 05/21/2025 5:10 PM CDT 05/21/2025 5:10 PM CDT Frederic Caballero MD SEND OUTS Final Result [facility] [address] [place] [address], * COMP METABOLIC PANEL (05/21/2025 5:10 PM CDT) SODIUM 138 135 - 146 mmol/L 05/22/2025 6:43 AM CDT [facility] POTASSIUM 4.1 3.5 - 5.3 mmol/L 05/22/2025 6:43 AM CDT [facility] CHLORIDE 106 98 - 110 mmol/L 05/22/2025 6:43 AM CDT [facility] CARBON DIOXIDE 23 20 - 32 mmol/L 05/22/2025 6:43 AM CDT [facility] GLUCOSE 86 65 - 99 mg/dL 05/22/2025 6:43 AM CDT [facility] Comment: Fasting reference interval CALCIUM 9.6 8.6 - 10.2 mg/dL 05/22/2025 6:43 AM CDT [facility] CREATININE 0.93 0.50 - 0.96 mg/dL 05/22/2025 6:43 AM CDT [facility] BUN/CREATININE RATIO SEE NOTE: (calc) 05/22/2025 6:43 AM CDT [facility] Comment: Not Reported: BUN and Creatinine are within reference range. EGFR 89 > OR = 60 mL/min/1. 73m2 05/22/2025 6:43 AM CDT [facility] ALBUMIN 4.7 3.6 - 5.1 g/dL 05/22/2025 6:43 AM CDT [facility] PROTEIN, TOTAL 7.3 6.1 - 8.1 g/dL 05/22/2025 6:43 AM CDT [facility] BILIRUBIN, TOTAL 0.6 0.2 - 1.2 mg/dL 05/22/2025 6:43 AM CDT [facility] ALKALINE PHOSPHATASE 62 31 - 125 U/L 05/22/2025 6:43 AM CDT [facility] ALT 14 6 - 29 U/L 05/22/2025 6:43 AM CDT [facility] AST 20 10 - 30 U/L 05/22/2025 6:43 AM CDT [facility] UREA NITROGEN (BUN) 10 7 - 25 mg/dL 05/22/2025 6:43 AM CDT [facility] GLOBULIN 2.6 1.9 - 3.7 g/dL (calc) 05/22/2025 6:43 AM CDT [facility] ALBUMIN/GLOBULI N RATIO 1.8 1.0 - 2.5 (calc) 05/22/2025 6:43 AM CDT [facility] Blood BLOOD SPECIMEN / Unknown [facility] / Unknown 05/21/2025 5:10 PM CDT 05/21/2025 5:10 PM CDT Frederic Caballero MD CHEMISTRY Final Result Performing Organization Address [facility] Co de Phone Number [facility] [address] [phone], * ANTI HCV (2024 8:33 AM CDT) [facility] HEPATITIS C ANTIBODY Non-Reacti ve Non-React carito 2024 6:40 PM CDT [facility] Comment:Please note, per www .CDC.gov: [...] 8:33 AM CDT 2024 8:33 AM CDT Irma Mcleod MD SEND OUTS Fin al Result [facility] [address] [address], from Last 3 Months or Most Recently Relevant to Health Maintenance Insurance COUNT INCLUDES THE [facility] Advance Directives * Full Code (Latest Code [...] 4:34 PM 04/24/2012 6:12 AM Care Teams Oil Lease Broker Relationship Specialty Start Date End Date Frederic Caballero MD [address] [place] [address] PCP - General Family Practice 10/16/24 Suzanne Yanez DO [address] [place] [address] Psychiatry 02/04/25
--- OUTSIDE RECORDS SUMMARY | 2025-06-08 23:07 | XMS_ITS | CCD ---
Author Name Interface, [email or web address] lity Address [address] [place] [address] Oncology Address [address] [place] [address] Allergies and Adverse Reactions Reason for Visit Medications Problems Social History
--- OUTSIDE RECORDS SUMMARY | 2025-06-08 23:07 | XMS_ITS | CCD ---
Author Name Interface, [email or web address] lity Address [address] [place] [address] Oncology Address [address] [place] [address] Allergies and Adverse Reactions Reason for Visit Medications Problems Social History
[2025-06-08 23:17] VITALS: TEMP 36.8
[2025-06-08] MEDS: ACETAMINOPHEN 500 MG TABLET 1000 MG PO (23:17)
[2025-06-08] MEDS: PSEUDOEPHEDRINE HCL 30 MG TABLET PO (23:17)
[2025-06-08 23:22] VITALS: BP 128/74; PULSE 90; RESP 20; TEMP 36.8; O2SAT 99
== END 2025-06-08 23:26 | disposition home or self-care (01) ==
PROVIDERS: Emergency Provider Emergency Medicine; PCP Internal Medicine Infectious Disease
DX: R05.9 Cough, unspecified (principal)
CPT/HCPCS: 87631; 87651; 99283; 99284; A9270

== ENCOUNTER 2025-06-16 06:07 | Emergency (ER) | payer BC, SELFPAY ==
--- OUTSIDE RECORDS SUMMARY | 2025-06-16 06:10 | XMS_ITS | Clinical Summary ---
Author Organization [facility] [facility] Address [address] [place] [address] Care Team Providers Care Baling Machine Operator Name Role Phone Frederic Caballero MD Primary Care P rovider Suzanne Yanez DO Unavailable [phone] Allergies Active Allergy Reactions Criticality Noted Date [...] daily. 90 Capsule 1 05/05/20 25 Active cloNIDine HCL (CATAPRES) 0.1 mg tabletIndication s:Insomnia, unspecified type Take 1 Tablet (0.1 mg) by mouth at bedtime. 90 Tablet 1 05/05/20 25 Active Wellbutrin XL 300 mg Extended-Release tabletIndication s:Moderate episode of recurrent major depressive disorder (HC) Take 1 Tablet (300 mg) by mouth once daily. The patient is allergic to [employer]. manufacture- please dispense medication from any other manufacture 30 Tablet 1 05/05/20 25 Active propranoloL 10 mg tabletIndication s:МАРИЯ (generalized anxiety disorder) Take 1 Tablet (10 mg) by mouth 2 times daily if needed (for anxiety). 45 Tablet 1 05/21/20 25 Active dextroamphetamin e-amphetamine (Adderall XR) 20 mg Extended-Release capsuleIndicatio ns:ADHD (attention deficit hyperactivity disorder), inattentive type Take 1 Capsule (20 mg) by mouth once daily. 30 Capsule 06/15/20 25 Active hydrOXYzine HCL (ATARAX) 25 mg tabletIndication s:МАРИЯ (generalized anxiety disorder) Take 1 Tablet (25 mg) by mouth 3 times daily if needed for Anxiety. 90 Tablet 1 03/09/20 24 025 Discontinu ed(*Med complete/R egimen complete/L evel of care change) dextroamphetamin e-amphetamine (Adderall XR) 20 mg Extended-Release capsuleIndicatio ns:ADHD (attention deficit hyperactivity disorder), inattentive type Take 1 Capsule (20 mg) by mouth once daily. 30 Capsule 05/05/20 25 025 Discontinu ed(Reorder (E-cancel not sent)) metroNIDAZOLE 0.75% vaginal (METROGEL) 0.75 % (37.5mg/5 [...] Encounters Date Type Department Care Team Description 06/15/2025 7:45 AM CDT Telemedicine [facility] [address] [facility] [address] [facility] [address] [place] [address] Suzanne Yanez DO Telehealth; Medication Management 06/15/2025 Travel 06/09/2025 8:00 AM CDT Office Visit [facility] [address] [place] [address] Bunny Bermudez PsyD, LP Individual Therapy 06/09/2025 Travel 05/21/2025 3:55 PM CDT Office Visit [facility] [address] [place] [address] Frederic Caballero MD Medication Management; Concerns (discuss PCOS) 05/21/2025 Travel 05/21/2025 Refill [facility] [address] [place] [address] Irma Mcleod MD Refill Request (Hydroxyzine Hcl) 05/18/2025 8:00 AM CDT Office Visit [facility] [address] [place] [address] Bunny Bermudez PsyD, LP Individual Therapy 05/18/2025 Travel 05/05/2025 7:45 AM CDT Telemedicine [facility] [address] [place] [address] Suzanne Yanez DO Medication Management; [place]health ([place]) 05/05/2025 Travel 04/23/2025 Refill [facility] [address] [place] [address] Frederic Caballero MD Refill Request (Bupropion) 03/17/2025 7:15 AM CDT Telemedicine 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 Gender Identity Not on file Sexual Orientation [...] CDT Respiratory Rate 16 09/19/2021 10:21 AM TRANSMISSION DESIGN ENGINEER Oxygen Saturation 97% 05/21/2025 4:07 PM CDT Inhaled Oxygen Concentration - - Weight 97.7 kg (215 lb 6.4 oz) 05/21/2025 4:07 P M CDT Height 169.5 cm (5' 6.73) 05/21/2025 4:07 PM CD T Body Mass Index 34.01 05/21/2025 4:07 PM CDT Plan of Treatment Health Maintenance Due [...] history exists Depression screening for age 12+ 06/15/2026 06/15/2025, 05/21/2025, 05/05/2025 Tetanus booster 12/28/2034 12/28/2024, 03/23/2014 RSV [...] THOMAS SPECIES Negative Negative 4:04 PM CDT [facility] THOMAS GLABRATA Negative Negative 05/22/2025 4:04 PM CDT [facility] TRICHOMONAS VVA Negative Negative 4:04 PM CDT [facility] BACTERIAL VAGINOSIS Positive(A) Negative 05/22/2025 4:04 PM CDT [facility] Other VAGINAL SWAB / Unknown Non-Blood / Unknown 05/21/2025 5:24 PM CDT 05/21/2025 5:24 PM CDT Frederic Caballero MD MICROBIOLOGY Final Result [facility] [address] [place] [address], * HEMOGLOBIN A1C (05/21/2025 5:10 PM CDT) HEMOGLOBIN A1C 5.5 <5.7 % 05/22/2025 4:39 AM CDT [facility] Comment: For the purpose of screening for the presence of diabetes: <5.7% Consistent with the absence of diabetes 5.7-6.4% Consistent with increased risk for diabetes (prediabetes) > or =6.5% Consistent with diabetes This assay result is consistent with a decreased risk of diabetes. Currently, no consensus exists regarding use of hemoglobin A1c for diagnosis of diabetes in children. According to [place] Diabetes Association (ADA) guidelines, hemoglobin A1c <7.0% represents optimal control in non- diabetic patients. Different metrics may apply to specific patient populations. Standards of Medical Care in Diabetes(ADA). Blood BLOOD SPECIMEN / Unknown [facility] / Unknown 05/21/2025 5:10 PM CDT 05/21/2025 5:10 PM CDT Frederic Caballero MD CHEMISTRY Final Result [facility] [address] [address], * TREPONEMA PALLIDUM (05/21/2025 5:10 PM CDT) TREPONEMA PALLIDUM Non-Reacti ve Non-Reacti ve 05/21/2025 10:42 PM CDT [facility] Blood BLOOD SPECIMEN / Unknown [facility] Collect / Unknown 05/21/2025 5:10 PM CDT 05/21/2025 5:10 PM CDT Frederic Caballero MD SEND OUTS Final Result [facility] [address] [place], [place] [id number], [place] * GC & CHLAMYDIA DNA PCR [[id number]] (05/21/2025 5:10 PM CDT) CHLAMYDIA PROBE Negative 10:48 AM CDT [facility] N GONORRHOEAE PROBE Negative 05/22/2025 10:48 AM CDT [facility] Other URINE SPECIMEN / Unknown Non-Blood / Unknown 05/21/2025 5:10 PM CDT 05/21/2025 5:10 PM CDT Frederic Caballero MD MICROBIOLOGY Final Result [facility] [address] [place] [address], [place] * ANTI HIV 1/2 (05/21/2025 5:10 PM CDT) HIV FINAL INTERPRETATOIN SEE NOTE 05/22/2025 6:08 AM CDT [facility] Comment: HIV Negative HIV-1 antigen and HIV-1/HIV-2 antibodies were not detected. There is no laboratory evidence of HIV infection. HIV AG/AB, 4TH GEN NON-REACT CARITO NON-REACT CARITO 05/22/2025 6:08 AM CDT [facility] Blood BLOOD SPECIMEN / Unknown [facility] / Unknown 05/21/2025 5:10 PM CDT 05/21/2025 5:10 PM CDT Frederic Caballero MD SEND OUTS Final Result [facility] [address] [place] [address], * COMP METABOLIC PANEL (05/21/2025 5:10 PM CDT) SODIUM 138 135 - 146 mmol/L 05/22/2025 6:43 AM CDT [facility] POTASSIUM 4.1 3.5 - 5.3 mmol/L 05/22/2025 6:43 AM CDT [facility] CHLORIDE 106 98 - 110 mmol/L [...] CDT [facility] BUN/CREATININE RATIO SEE NOTE: 6 - 22 (calc) 05/22/2025 6:43 AM CDT [facility] [...] Caballero MD CHEMISTRY Final Result [facility] [address] [address], * ANTI HCV (2024 8:33 AM CDT) [facility] HEPATITIS C ANTIBODY Non-Reacti ve Non-React carito 2024 6:40 PM CDT [facility] Comment:Please note, per www .CDC.gov: If [...] Mcleod MD SEND OUTS Fin al Result [facility] [address] [place] [address], from Last 3 Months or Most Recently Relevant to Health Maintenance Insurance [facility] Advance Directives * Full Code (Latest Code [...] 4:34 PM 04/24/2012 6:12 AM Care Teams Baling Machine Operator Relationship Specialty Start Date End Date Frederic Caballero MD [address] [place] [address] PCP - General Family Practice 10/16/24 Suzanne Yanez DO [address] [facility] [address] [place] [address] Psychiatry 02/04/25
--- OUTSIDE RECORDS SUMMARY | 2025-06-16 06:10 | XMS_ITS | CCD ---
Author Name Interface, [id number] lity Address [address] [place] [address] Oncology Address [address] [place] [address] Allergies and Adverse Reactions Medication/Group Name Reaction Severity Date No known allergies Reason for Visit Medications Date Name Route Dose Frequency Instructions Start Date End Date Status Fill Status Indication 07/05 Norethindr one Yoandy-Eth Estradiol- Iron Oral 1 mg-20 mcg PO 1.0 TABLE T(S) daily 2017 active Problems Diagnosis Status Date of Diagnosis Resolution Date Hypertrophy of breast (disorder) Active Social History Date Name Value 04/18/2019 Sex Female
[2025-06-16 06:20] VITALS: BP 149/100; PULSE 121; RESP 20; TEMP 35.9; O2SAT 98; BMI 33.9
--- NOTE | 2025-06-16 07:03 | ED.GENADULT ---
HPI - General Adult General Chief complaint: Shortness of Breath/Dyspnea Stated complaint: Chest pain, asthma exacerbation Time Seen by Provider: 06/16/25 07:03 History of Present Illness HPI narrative: Patient c/o asthma flare and chest pain that began yesterday. Patient states she was sick with a cold and is also a smoker. Patient states she was supposed to f/ u with her PCP about adding a neb and prednisone to her asthma flare plan but has not done that yet. Patient c/o a productive cough and dizziness but denies fever. Patient took her symbicort and her rescue inhaler at 0515 today. Patient states CP is medial and is stabbing/heavy. 20-year-old woman presenting to the emergency department with concern of chest pain that has been going on since yesterday. Underlying history of asthma. Seen a week ago here in the emergency department with a diagnosis of URI and cough. Recommended for symptomatic treatment with acetaminophen and ibuprofen and pseudoephedrine. She has had chest discomfort like this before. It is only vaguely pleuritic. However in this case has continued and escalated. No lightheadedness. No fever. She thinks that prednisone would be helpful. Also thinks that nebulization might be helpful. She has messaged her primary about a course of prednisone. Pain is left of midline but central at the same time. Has been coughing. Is a little anxious to get to work on time. Nexplanon as contraception. Has never had pulmonary embolus. She does smoke. Does use albuterol and Symbicort. I think does have some history of anxiety Related Data Home Medications ?Medication ?Instructions ?Recorded ?Confirmed clonidine HCl 0.1 mg tablet 0.1 mg PO DAILY 07/22/23 06/08/25 dextroamphetamine-amphetamine ER 1 cap PO QAM 07/22/23 06/08/25 20 mg 24hr capsule,extend release hydroxyzine HCl 10 mg tablet 10 mg PO TID PRN 07/22/23 06/08/25 budesonide-formoterol HFA 80 2 inh inhalation DIRECTED 06/08/25 06/08/25 mcg-4.5 mcg/actuation aerosol inhaler (Symbicort) bupropion HCl 300 mg 24 hr tablet, 300 mg PO DAILY 06/08/25 06/08/25 extended release duloxetine 60 mg capsule,delayed 60 mg PO DAILY 06/08/25 06/08/25 release naltrexone 50 mg tablet 50 mg PO BID 06/08/25 06/08/25 propranolol 10 mg tablet 10 mg PO DIRECTED 06/08/25 06/08/25 Previous Rx's ?Medication ?Instructions ?Recorded inhalational spacing device #1 ea 07/21/24 (BreatheRite Valved MDI Spacer) albuterol sulfate 90 mcg/actuation 2 inh inhalation Q4-6H PRN #1 ea 04/28/25 breath activated powder inhaler inhalational spacing device #1 ea 04/28/25 (BreatheRite MDI Spacer) Allergies Allergy/AdvReac Type Severity Reaction Status Date / Time bupropion Allergy Unknown Verified 06/08/25 22:15 Review of Systems Status of ROS: Reports: 6 or more systems reviewed and unremarkable except as noted in History and below [facility] Social History Smoking Status: Never smoker Do you use any of these nicotine containing products: Vaping Products Second hand tobacco smoke exposure: No How often do you have a drink containing alcohol: 2-3 times a week AUDIT-C Alcohol total score: 3 Non-prescribed substance use: marijuana (any form) and crack/cocaine Exam Narrative: Exam Narrative: Pleasant. NAD. Carefully ground. She is reading a book. Oropharynx is unremarkable. Neck is supple without lymphadenopathy. Lungs are with some trace rhonchi generally. Good air movement. No wheeze. Heart in elevated and regular rate. Extremities are well perfused without apparent edema. Chest discomfort is vaguely reproducible to palpation in the mid sternum. No supraclavicular crepitus. Const: Vital Signs, click to edit/add: Vital Signs - 24 hr 06/16/25 06:20 Temperature 96.6 F L Pulse Rate [Left P ulse Oximeter] 121 H Respiratory Rate 20 Blood Pressure [Ri ght Upper Arm] 149/100 H Pulse Oximetry 98 Oxygen Delivery Me thod Room Air Documenting provider has reviewed patient's vital signs: yes Course Vital Signs Vital signs: Initial Vital Signs Temperature 96.6 F L 06/16/25 06:20 Temperature Source Temporal Artery Scan 06/16/25 06:20 Pulse Rate 121 H 06/16/25 06:20 Respiratory Rate 20 06/16/25 06:20 Blood Pressure 149/100 H 06/16/25 06:20 Blood Pressure Mean 116 H 06/16/25 06:20 Blood Pressure Position Sitting 06/16/25 06:20 Pulse Oximetry 98 06/16/25 06:20 Oxygen Delivery Method Room Air 06/16/25 06:20 Vital Signs Temperature 96.6 F L 06/16/25 06:20 Pulse Rate 121 H 06/16/25 06:20 Respiratory Rate 20 06/16/25 06:20 Blood Pressure 149/100 H 06/16/25 06:20 Pulse Oximetry 98 06/16/25 06:20 Oxygen Delivery Method Room Air 06/16/25 06:20 Temperature 96.6 F L 06/16/25 06:20 Pulse Rate 121 H 06/16/25 06:20 Respiratory Rate 20 06/16/25 06:20 Blood Pressure 149/100 H 06/16/25 06:20 Pulse Oximetry 98 06/16/25 06:20 Oxygen Delivery Method Room Air 06/16/25 06:20 Medications Administered Medications: Discontinued Medications Generic Name Dose Route Start Last Admin Trade Name Freq PRN Reason Stop Dose Admin Albuterol/Ipratropium 1 neb 06/16/25 07:17 06/16/25 07:43 Iprat-Albut 0.5-2.5 Mg/3 Ml Neb IH 06/16/25 07:18 1 neb ONCE ONE Administration Medical Decision Making MDM Narrative Medical decision making narrative: Differential includes costochondritis, pneumonia, anxiety-related chest pain, pulmonary embolus, pneumothorax, doubtful ischemic cardiovascular disease, among other. Cannot apply PERC rule. We did discuss larger workup with this differential in mind versus trialing a DuoNeb and proceeding from there. Otherwise does seem well. In shared decision-making decided to trial the DuoNeb. On reassessment notes significant improvement of her chest discomfort though still lightly present. On reauscultation, has less congested sounds. Still without wheeze. Good air movement. Might have some component of costochondritis. I think anxiety is exacerbating as well. Further opted to do a one view chest x-ray primarily I think to be certain no clear pneumothorax is present. One-view chest x-ray independently reviewed by me looks to be WNL. No pneumothorax. Normal mediastinum and cardiac silhouette. I do review prior imaging confirming right lower lung/lobe area granuloma been present prior. See patient discharge plan for further discussion I am relieved that this nebulization has been helpful for you. I understand you still do have some residual chest discomfort. It may be some component of chest wall discomfort as well where the prednisone could be also helpful. Prescribing you some prednisone from [facility]. If you are feeling markedly improved at 3 days can stop the prednisone course. Otherwise I have written for 4 days and you would then have a couple tablets of prednisone remaining if needed in the future. Please do which you can to quit smoking. [facility] may still have some resources to help and/or discuss further with your primary care provider please. Return/be seen for increasing and persistent chest pain, increasing, worsening shortness of breath, fever that <del>she</del> you think might be related. Medical Records Medical records reviewed: Yes I reviewed the patient's medical records Discharge Plan Discharge Clinical Impression: Atypical chest pain, Nicotine dependence Patient Disposition: Home, Self-Care Condition: Improved Instructions: Chest Pain (ED) Additional Instructions: I am relieved that this nebulization has been helpful for you. I understand you still do have some residual chest discomfort. It may be some component of chest wall discomfort as well where the prednisone could be also helpful. Prescribing you some prednisone from [facility]. If you are feeling markedly improved at 3 days can stop the prednisone course. Otherwise I have written for 4 days and you would then have a couple tablets of prednisone remaining if needed in the future. Please do which you can to quit smoking. [facility] may still have some resources to help and/or discuss further with your primary care provider please. Return/be seen for increasing and persistent chest pain, increasing, worsening shortness of breath, fever that she think might be related. Prescriptions: No Action dextroamphetamine-amphetamine 20 mg capsule,extended release 24hr 1 cap PO QAM clonidine HCl 0.1 mg tablet 0.1 mg PO DAILY hydroxyzine HCl 10 mg tablet 10 mg PO TID PRN propranolol 10 mg tablet 10 mg PO DIRECTED naltrexone 50 mg tablet 50 mg PO BID bupropion HCl 300 mg tablet extended release 24 hr 300 mg PO DAILY duloxetine 60 mg capsule,delayed release(DR/EC) 60 mg PO DAILY budesonide-formoterol [Symbicort] 80-4.5 mcg/actuation HFA aerosol inhaler 2 inh inhalation DIRECTED (DME) BreatheRite Valved MDI Spacer Spacer See Rx Instructions .Route Qty: 1 0RF Rx Instructions: As directed albuterol sulfate 90 mcg/actuation aerosol powdr breath activated 2 inh inhalation Q4-6H PRNQty: 1 4RF (DME) BreatheRite MDI Spacer Spacer See Rx Instructions .Route Qty: 1 0RF Rx Instructions: As directed Follow Up/Referrals: Rosa Caballero MD [Referring, Infectious Disease] Stand Alone Forms: [employer] Info Instructions
[2025-06-16] MEDS: IPRAT-ALBUT 0.5-2.5 MG/3 ML NEB 1 NEB IH (07:43)
--- OUTSIDE RECORDS SUMMARY | 2025-06-16 07:43 | XMS_ITS | CCD ---
Author Name Interface, [id number] lity Address [address] [place] [address] Oncology Address [address] [place] [address] Allergies and Adverse Reactions Medication/Group Name Reaction [...]
--- OUTSIDE RECORDS SUMMARY | 2025-06-16 07:43 | XMS_ITS | CCD ---
Author Name Interface, [id number] lity Address [address] [place] [address] Oncology Address [address] [place] [address] Allergies and Adverse Reactions Reason for Visit Medications Problems Social History
--- NOTE | 2025-06-16 08:00 | ED.GENADULT ---
HPI - General Adult General Chief complaint: Shortness of Breath/Dyspnea Stated complaint: Chest pain, asthma exacerbation Time Seen by Provider: 06/16/25 07:03 Related Data Home Medications ?Medication ?Instructions ?Recorded ?Confirmed clonidine HCl 0.1 mg tablet 0.1 mg PO DAILY 07/22/23 06/08/25 dextroamphetamine-amphetamine ER 1 cap PO QAM 07/22/23 06/08/25 20 mg 24hr capsule,extend release hydroxyzine HCl 10 mg tablet 10 mg PO TID PRN 07/22/23 06/08/25 budesonide-formoterol HFA 80 2 inh inhalation DIRECTED 06/08/25 06/08/25 mcg-4.5 mcg/actuation aerosol inhaler (Symbicort) bupropion HCl 300 mg 24 hr tablet, 300 mg PO DAILY 06/08/25 06/08/25 extended release duloxetine 60 mg capsule,delayed 60 mg PO DAILY 06/08/25 06/08/25 release naltrexone 50 mg tablet 50 mg PO BID 06/08/25 06/08/25 propranolol 10 mg tablet 10 mg PO DIRECTED 06/08/25 06/08/25 Previous Rx's ?Medication ?Instructions ?Recorded inhalational spacing device #1 ea 07/21/24 (BreatheRite Valved MDI Spacer) albuterol sulfate 90 mcg/actuation 2 inh inhalation Q4-6H PRN #1 ea 04/28/25 breath activated powder inhaler inhalational spacing device #1 ea 04/28/25 (BreatheRite MDI Spacer) Allergies Allergy/AdvReac Type Severity Reaction Status Date / Time bupropion Allergy Unknown Verified 06/08/25 22:15 [facility] Social History Smoking Status: Never smoker Do you use any of these nicotine containing products: Vaping Products Second hand tobacco smoke exposure: No How often do you have a drink containing alcohol: 2-3 times a week AUDIT-C Alcohol total score: 3 Non-prescribed substance use: marijuana (any form) and crack/cocaine Exam Const: Vital Signs, click to edit/add: Vital Signs - 24 hr 06/16/25 06:20 Temperature 96.6 F L Pulse Rate [Left P ulse Oximeter] 121 H Respiratory Rate 20 Blood Pressure [Ri ght Upper Arm] 149/100 H Pulse Oximetry 98 Oxygen Delivery Me thod Room Air Course Vital Signs Vital signs: Initial Vital Signs Temperature 96.6 F L 06/16/25 06:20 Temperature Source Temporal Artery Scan 06/16/25 06:20 Pulse Rate 121 H 06/16/25 06:20 Respiratory Rate 20 06/16/25 06:20 Blood Pressure 149/100 H 06/16/25 06:20 Blood Pressure Mean 116 H 06/16/25 06:20 Blood Pressure Position Sitting 06/16/25 06:20 Pulse Oximetry 98 06/16/25 06:20 Oxygen Delivery Method Room Air 06/16/25 06:20 Vital Signs Temperature 96.6 F L 06/16/25 06:20 Pulse Rate 121 H 06/16/25 06:20 Respiratory Rate 20 06/16/25 06:20 Blood Pressure 149/100 H 06/16/25 06:20 Pulse Oximetry 98 06/16/25 06:20 Oxygen Delivery Method Room Air 06/16/25 06:20 Temperature 96.6 F L 06/16/25 06:20 Pulse Rate 121 H 06/16/25 06:20 Respiratory Rate 20 06/16/25 06:20 Blood Pressure 149/100 H 06/16/25 06:20 Pulse Oximetry 98 06/16/25 06:20 Oxygen Delivery Method Room Air 06/16/25 06:20 Medications Administered Medications: Discontinued Medications Generic Name Dose Route Start Last Admin Trade Name Freq PRN Reason Stop Dose Admin Albuterol/Ipratropium 1 neb 06/16/25 07:17 06/16/25 07:43 Iprat-Albut 0.5-2.5 Mg/3 Ml Neb 06/16/25 07:18 1 neb ONCE ONE Administration Discharge Plan Discharge Clinical Impression: Atypical chest pain Patient Disposition: Home, Self-Care Condition: Improved Instructions: Chest Pain (ED) Additional Instructions: I am relieved that this nebulization has been helpful for you. I understand you still do have some residual chest discomfort. It may be some component of chest wall discomfort as well where the prednisone could be also helpful. Prescribing you some prednisone from [facility]. If you are feeling markedly improved at 3 days can stop the prednisone course. Otherwise I have written for 4 days and you would than have a couple tablets of prednisone remaining if needed in the future. Please do which you can to quit smoking. [facility] may still have some resources to help and/or discuss further with your primary care provider please. Return/be seen for increasing and persistent chest pain, increasing, worsening shortness of breath, fever that she think might be related. Prescriptions: No Action dextroamphetamine-amphetamine 20 mg capsule,extended release 24hr 1 cap PO QAM clonidine HCl 0.1 mg tablet 0.1 mg PO DAILY hydroxyzine HCl 10 mg tablet 10 mg PO TID PRN propranolol 10 mg tablet 10 mg PO DIRECTED naltrexone 50 mg tablet 50 mg PO BID bupropion HCl 300 mg tablet extended release 24 hr 300 mg PO DAILY duloxetine 60 mg capsule,delayed release(DR/EC) 60 mg PO DAILY budesonide-formoterol [Symbicort] 80-4.5 mcg/actuation HFA aerosol inhaler 2 inh inhalation DIRECTED (DME) BreatheRite Valved MDI Spacer Spacer See Rx Instructions .Route Qty: 1 0RF Rx Instructions: As directed albuterol sulfate 90 mcg/actuation aerosol powdr breath activated 2 inh inhalation Q4-6H PRNQty: 1 4RF (DME) BreatheRite MDI Spacer Spacer See Rx Instructions .Route Qty: 1 0RF Rx Instructions: As directed Follow Up/Referrals: Rosa Caballero MD [Referring, Infectious Disease] Stand Alone Forms: [employer] Info Instructions
--- NOTE | 2025-06-16 08:15 | CRLHL7_ITS ---
For Patients: As a result of the Cures Act, medical imaging exams and procedure reports are released immediately into your electronic medical record. You may view this report before your referring provider. If you have questions, please contact your health care provider. INDICATION: Chest pain. Asthma. COMPARISON: September 05, 2024 TECHNIQUE: Single view study FINDINGS: TUBES AND LINES: None. HEART AND MEDIASTINUM: The heart size is normal. The mediastinal contour appears normal for patient age. LUNGS AND PLEURAL SPACES: Incidental right lower lobe granuloma. Lungs are otherwise unremarkable. Overall appearance unchanged.The pleural spaces are unremarkable. OSSEOUS STRUCTURES: Age-appropriate appearance. No acute focal finding. IMPRESSION: No evidence of active pulmonary disease. Incidental right lower lobe granuloma. Dictated by Stone Mazariegos MD @ 06/16/2025 9:10:15 AM (Electronically Signed)
== END 2025-06-16 08:47 | disposition home or self-care (01) ==
PROVIDERS: Emergency Provider Family Medicine; PCP Student in an Organized Health Care Education/Training Program
DX: R07.9 Chest pain, unspecified (principal); F17.210 Nicotine dependence, cigarettes, uncomplicated
CPT/HCPCS: 71045; 85025; 85379; 86140; 87631; 99284